=== PATIENT | female | born 1970 | race Caucasian/White ===

== ENCOUNTER 2017-04-24 22:40 | Emergency (ER) | payer BC, MEDICARE ==
[~2017-04-24] VITALS: Ht 172.7 cm; Wt 123.3 kg
[2017-04-24] MEDS ORDERED: MAALOX/HYOSCYAMINE/LIDOCAINE 45 ML BTL PO ONE (23:30)
[2017-04-24 23:38] LABS: HEMOGLOBIN 13.6 g/dL (11.7-16.4)
[2017-04-24 23:50] LABS: ASPARTATE AMINO TRANSFERASE 22 U/L (15-37); BLOOD UREA NITROGEN 19 mg/dL (7-18)
[2017-04-25 00:05] LABS: HCG UR OBC PASS
[2017-04-25 00:06] LABS: PATH.CAST-FLAG NOT PRESENT; SPERM-FLAG NOT PRESENT; SRC-FLAG NOT PRESENT; XTAL-FLAG NOT PRESENT; YLC-FLAG NOT PRESENT
[2017-04-25] MEDS ORDERED: MORPHINE SULFATE 4 MG/ML, 1ML ONE ×2 (00:30→02:09)
[2017-04-25] MEDS ORDERED: SODIUM CHLORIDE 0.9% 1,000ML IVBOLUS ONE (00:30)
[2017-04-25] MEDS ORDERED: ONDANSETRON 2MG/ML, 2ML ONE (00:30)
[2017-04-25] MEDS ORDERED: ONDANSETRON 2MG/ML, 2ML IVPush ONE (00:30)
[2017-04-25] MEDS ORDERED: MAALOX/HYOSCYAMINE/LIDOCAINE 45 ML BTL ONE (00:30)
[2017-04-25] MEDS: MORPHINE SULFATE 4 MG/ML, 1ML IVPush PRN ×2 (00:31→02:10)
[2017-04-25] MEDS ORDERED: LABE100T3 PO (00:37)
[2017-04-25] MEDS ORDERED: LEVO300T2 PO (00:37)
[2017-04-25] MEDS ORDERED: INSU100V8 SQ (00:37)
[2017-04-25] MEDS ORDERED: PREG200C PO (00:37)
[2017-04-25] MEDS ORDERED: OMNIPAQUE 350 MG/ML, 100ML BOTTLE ONE (01:00)
[2017-04-25 01:44] VITALS: BP 149/95
[2017-04-25 02:23] LABS: IS PT STATUS REG ER OR PRE ER? YES
== END 2017-04-25 02:47 | disposition home or self-care (01) ==
LOC: ED 23:29
DX: K85.90 Acute pancreatitis without necrosis or infection, unspecified (principal); R10.13 Epigastric pain; R10.12 Left upper quadrant pain; E11.9 Type 2 diabetes mellitus without complications; I10 Essential (primary) hypertension
CPT/HCPCS: 36415; 74177; 80053; 81001; 81025; 83690; 84484; 85025; 87077; 87086; 87186; 93005; 96361; 96374; 96375; 96376; 99285; J2405; J7030; Q9967

== ENCOUNTER 2017-04-27 15:12 | Emergency (ER) | payer BC, MEDICARE ==
[~2017-04-27] VITALS: Ht 172.7 cm; Wt 122.4 kg
[~2017-04-27 15:12] MED LIST: INSU100V8 SQ; LABE100T3 PO; LEVO300T2 PO; PREG200C PO
[2017-04-27] MEDS ORDERED: SODIUM CHLORIDE 0.9% 1,000 ML IV ONE (15:46)
[2017-04-27] MEDS ORDERED: SODIUM CHLORIDE FLUSH 10ML SYR IVF ONE (16:00)
[2017-04-27] MEDS ORDERED: SODIUM CHLORIDE 0.9% 1,000ML IVBOLUS ONE (16:00)
[2017-04-27] MEDS ORDERED: ONDANSETRON 2MG/ML, 2ML IVPush ONE (16:00)
[2017-04-27] MEDS ORDERED: HYDROmorphone 1 MG/ML, 1ML IVPush PRN (16:00)
[2017-04-27 16:04] LABS: HEMATOCRIT 40.8 % (34.6-47.8); WHITE BLOOD COUNT 8.3 x10^3/uL (3.4-10)
[2017-04-27] MEDS ORDERED: ONDANSETRON 2MG/ML, 2ML ONE (16:06)
[2017-04-27] MEDS ORDERED: HYDROmorphone 1 MG/ML, 1ML ONE (16:06)
[2017-04-27 16:10] LABS: ASPARTATE AMINO TRANSFERASE 47 U/L (15-37); BLOOD UREA NITROGEN 14 mg/dL (7-18)
[2017-04-27 18:49] VITALS: BP 148/75
== END 2017-04-27 18:51 | disposition home or self-care (01) ==
LOC: ED 15:50
DX: K85.00 Idiopathic acute pancreatitis without necrosis or infection (principal); Z90.49 Acquired absence of other specified parts of digestive tract; I10 Essential (primary) hypertension; E11.9 Type 2 diabetes mellitus without complications
CPT/HCPCS: 36415; 80053; 81003; 83690; 85025; 96361; 96374; 96375; 99284; J1170; J2405; J7030

== ENCOUNTER → 2017-06-01 | Outpatient (CLI) | payer BC, MEDICARE | END | disposition home or self-care (01) | LOC: WOUND 14:09 | PROVIDERS: ATTEND Internal Medicine | DX: E11.621 Type 2 diabetes mellitus with foot ulcer (principal); L97.511 Non-pressure chronic ulcer of other part of right foot limited to breakdown of skin; E11.65 Type 2 diabetes mellitus with hyperglycemia; I10 Essential (primary) hypertension | CPT/HCPCS: 97597; 99205; 99215 ==

== ENCOUNTER → 2017-06-09 | Outpatient (CLI) | payer BC, MEDICARE | END | disposition home or self-care (01) | LOC: WOUND 10:16 | PROVIDERS: ATTEND Internal Medicine | DX: E11.621 Type 2 diabetes mellitus with foot ulcer (principal); L97.511 Non-pressure chronic ulcer of other part of right foot limited to breakdown of skin; E78.5 Hyperlipidemia, unspecified; E03.9 Hypothyroidism, unspecified; I10 Essential (primary) hypertension; Z87.891 Personal history of nicotine dependence | CPT/HCPCS: 97597 ==

== ENCOUNTER 2017-07-04 02:36 | Inpatient (IN) | payer MEDICARE, BC ==
[~2017-07-04] VITALS: Ht 172.7 cm; Wt 121.9 kg
[2017-07-04] MEDS ORDERED: SODIUM CHLORIDE 0.9% 1,000ML IVBOLUS ONE (03:00)
[2017-07-04] MEDS ORDERED: SODIUM CHLORIDE FLUSH 10ML SYR IVF ONE (03:00)
[2017-07-04] MEDS ORDERED: PIPERACILLIN/TAZO/PMX 3.375GM 50 ML IVPB ONE (03:00)
[2017-07-04] MEDS ORDERED: VANCOMYCIN 2,300 MG in SODIUM CHLORIDE 0.9% 500 ML IV ONE (03:00)
[2017-07-04] MEDS ORDERED: VANCOMYCIN PER PHARMACY IV ONE (03:00)
[2017-07-04] MEDS ORDERED: ONDANSETRON 2MG/ML, 2ML IVPush ONE ×2 (03:00→06:30)
[2017-07-04 03:05] LABS: HEMATOCRIT 39.9 % (34.6-47.8); HEMOGLOBIN 13.9 g/dL (11.7-16.4); WHITE BLOOD COUNT 9.8 x10^3/uL (3.4-10)
[2017-07-04 03:11] LABS: BLOOD UREA NITROGEN 13 mg/dL (7-18)
[2017-07-04] MEDS ORDERED: PIPERACILLIN/TAZO/PMX 3.375GM 50 ML ONE (03:14)
[2017-07-04] MEDS ORDERED: HYDROmorphone 1 MG/ML, 1ML ONE ×3 (03:14→06:22)
[2017-07-04] MEDS ORDERED: ONDANSETRON 2MG/ML, 2ML ONE ×2 (03:14→06:22)
[2017-07-04] MEDS ORDERED: LORazepam 2 MG/ML, 1ML ONE (03:15)
[2017-07-04] MEDS ORDERED: DIAZEPAM 5 MG TABLET PO ONE (03:30)
[2017-07-04] MEDS: HYDROmorphone 1 MG/ML, 1ML IVPush PRN ×2 (03:30→04:20)
[2017-07-04] MEDS ORDERED: LORazepam 2 MG/ML, 1ML IVPush ONE (03:30)
[2017-07-04] MEDS ORDERED: DIAZEPAM 5 MG TABLET ONE (03:51)
[2017-07-04] MEDS ORDERED: ZIPRASIDONE 20 MG INJ IM ONE (04:13)
[2017-07-04] MEDS ORDERED: GADOBUTROL 10 MMOL/10 ML PFS ONE (05:36)
[2017-07-04] MEDS ORDERED: HYDROmorphone 1 MG/ML, 1ML IVPush PRN (06:30)
[2017-07-04] MEDS ORDERED: MULT-508 PO (07:53)
[2017-07-04] MEDS ORDERED: HYDR-3307 PO (07:53)
[2017-07-04] MEDS ORDERED: SIMV20TA3 PO (07:53)
[2017-07-04] MEDS ORDERED: SODIUM CHLORIDE FLUSH 10ML SYR IVF PRN (08:00)
[2017-07-04] MEDS ORDERED: LABETALOL 5MG/ML, 20ML IVPush PRN (08:30)
[2017-07-04] MEDS ORDERED: VANCOMYCIN 0 MG in SODIUM CHLORIDE 0.9% 100 ML IV SCH (08:30)
[2017-07-04] MEDS ORDERED: hydrALAzine 20 MG/ML, 1ML IVPush PRN (08:30)
[2017-07-04] MEDS ORDERED: ONDANSETRON ODT 4 MG PO PRN (08:30)
[2017-07-04] MEDS ORDERED: BISACODYL 10 MG SUPP PR PRN (08:30)
[2017-07-04] MEDS ORDERED: ACETAMINOPHEN 325 MG TABLET PO PRN (08:30)
[2017-07-04] MEDS ORDERED: POLYETHYLENE GLYCOL 17 GM PACKET PO PRN (08:30)
[2017-07-04] MEDS ORDERED: ONDANSETRON 2MG/ML, 2ML IVPush PRN (08:30)
[2017-07-04] MEDS ORDERED: ZOLPIDEM 5MG TABLET PO PRN (08:30)
[2017-07-04 08:32] VITALS: BP 149/84
[2017-07-04] MEDS: VANCOMYCIN MC SCH ×2 (09:00→17:00)
[2017-07-04] MEDS: SENNA/DOCUSATE TABLET PO SCH (09:00)
[2017-07-04] MEDS ORDERED: SUMATRIPTAN 6MG/0.5ML SQ ONE (10:00)
[2017-07-04] MEDS: NS + 20MEQ KCL 1,000 ML IV SCH (10:06)
[2017-07-04] MEDS: HYDROcodone/APAP 10/325 MG TABLET PO SCH ×3 (10:06→20:00)
[2017-07-04] MEDS: PREGABALIN 200 MG CAPSULE PO SCH ×2 (10:13→19:59)
[2017-07-04] MEDS: PIPERACILLIN/TAZO/PMX 3.375GM 50 ML IV SCH ×3 (10:13→19:53)
[2017-07-04] MEDS: ENOXAPARIN 40 MG/0.4 ML SQ SCH (10:13)
[2017-07-04] MEDS: FAMOTIDINE 20 MG TABLET PO SCH ×2 (10:13→19:57)
[2017-07-04] MEDS: LABETALOL 100 MG TABLET PO SCH ×2 (10:13→19:54)
[2017-07-04] MEDS: MULTIVITAMIN 1 TABLET PO SCH (10:13)
[2017-07-04] MEDS ORDERED: VANCOMYCIN 2,400 MG in SODIUM CHLORIDE 0.9% 500 ML IV ONE (11:00)
[2017-07-04] MEDS ORDERED: VANCOMYCIN PER PHARMACY MC PRN (11:00)
[2017-07-04] MEDS: HYDROmorphone 2 MG/ML, 1ML IVPush PRN ×4 (12:10→19:12)
[2017-07-04] MEDS: INSULIN REGULAR 100 UNITS/ML, 3ML VIAL SQ-INSULIN SCH ×3 (13:06→20:17)
[2017-07-04 16:04] VITALS: BP 134/79
[2017-07-04] MEDS: SIMVASTATIN 20 MG TABLET PO SCH (19:54)
[2017-07-04 19:56] VITALS: BP 125/76
[2017-07-04] MEDS ORDERED: INSULIN GLARGINE HUM REC ANLOG 72 UNIT SQ SCH (21:00)
[2017-07-04] MEDS: VANCOMYCIN 1,800 MG in SODIUM CHLORIDE 0.9% 250 ML IV SCH (22:36)
[2017-07-04 23:20] VITALS: BP 111/74
[2017-07-04] MEDS: OXYcodone IR 5MG TABLET PO PRN (23:23)
[2017-07-05] MEDS: VANCOMYCIN MC SCH
[2017-07-05 00:53] VITALS: BP 134/78
[2017-07-05] MEDS: HYDROmorphone 2 MG/ML, 1ML IVPush PRN ×5 (00:57→22:35)
[2017-07-05] MEDS: PIPERACILLIN/TAZO/PMX 3.375GM 50 ML IV SCH ×3 (03:40→17:02)
[2017-07-05 05:01] LABS: HEMATOCRIT 35.4 % (34.6-47.8); HEMOGLOBIN 12.3 g/dL (11.7-16.4); WHITE BLOOD COUNT 7.1 x10^3/uL (3.4-10)
[2017-07-05] MEDS: NS + 20MEQ KCL 1,000 ML IV SCH (05:03)
[2017-07-05] MEDS: LEVOTHYROXINE 150 MCG TABLET PO SCH (05:03)
[2017-07-05 05:13] LABS: BLOOD UREA NITROGEN 8 mg/dL (7-18)
[2017-07-05 05:15] VITALS: BP 143/82
[2017-07-05 07:23] VITALS: BP 114/72
[2017-07-05] MEDS: SENNA/DOCUSATE TABLET PO SCH (09:00)
[2017-07-05] MEDS: MULTIVITAMIN 1 TABLET PO SCH (09:06)
[2017-07-05] MEDS: LABETALOL 100 MG TABLET PO SCH ×2 (09:07→20:52)
[2017-07-05] MEDS: OXYcodone IR 5MG TABLET PO PRN (09:07)
[2017-07-05] MEDS: FAMOTIDINE 20 MG TABLET PO SCH ×2 (09:07→20:53)
[2017-07-05] MEDS: PREGABALIN 200 MG CAPSULE PO SCH ×2 (09:07→20:52)
[2017-07-05] MEDS: HYDROcodone/APAP 10/325 MG TABLET PO SCH ×3 (09:07→20:52)
[2017-07-05] MEDS: ENOXAPARIN 40 MG/0.4 ML SQ SCH (09:08)
[2017-07-05] MEDS: INSULIN REGULAR 100 UNITS/ML, 3ML VIAL SQ-INSULIN SCH ×4 (09:30→21:09)
[2017-07-05] MEDS: VANCOMYCIN 1,800 MG in SODIUM CHLORIDE 0.9% 250 ML IV SCH (12:27)
[2017-07-05 12:50] VITALS: BP 124/78
[2017-07-05] MEDS ORDERED: LORazepam 2 MG/ML, 1ML IVPush ONE (14:30)
[2017-07-05] MEDS ORDERED: NS + 20MEQ KCL 1,000 ML IV SCH (17:00)
[2017-07-05] MEDS ORDERED: POLYETHYLENE GLYCOL 17 GM PACKET PO PRN (19:30)
[2017-07-05] MEDS ORDERED: ONDANSETRON ODT 4 MG PO PRN (19:30)
[2017-07-05] MEDS ORDERED: VANCOMYCIN PER PHARMACY MC PRN (19:30)
[2017-07-05] MEDS ORDERED: BISACODYL 10 MG SUPP PR PRN (19:30)
[2017-07-05] MEDS ORDERED: ACETAMINOPHEN 325 MG TABLET PO PRN (19:30)
[2017-07-05] MEDS ORDERED: LABETALOL 5MG/ML, 20ML IVPush PRN (19:30)
[2017-07-05 20:03] VITALS: BP 151/86
[2017-07-05] MEDS: SIMVASTATIN 20 MG TABLET PO SCH (20:52)
[2017-07-06] MEDS: PIPERACILLIN/TAZO/PMX 3.375GM 50 ML IV SCH ×2 (00:48→07:30)
[2017-07-06 01:05] VITALS: BP 141/84
[2017-07-06] MEDS: HYDROmorphone 2 MG/ML, 1ML IVPush PRN ×6 (01:30→22:50)
[2017-07-06] MEDS: VANCOMYCIN 1,800 MG in SODIUM CHLORIDE 0.9% 250 ML IV SCH (01:30)
[2017-07-06 05:12] LABS: HEMATOCRIT 35.2 % (34.6-47.8); HEMOGLOBIN 11.8 g/dL (11.7-16.4); WHITE BLOOD COUNT 9.4 x10^3/uL (3.4-10)
[2017-07-06 05:23] LABS: BLOOD UREA NITROGEN 12 mg/dL (7-18)
[2017-07-06] MEDS: LEVOTHYROXINE 150 MCG TABLET PO SCH (05:36)
[2017-07-06 07:01] VITALS: BP 162/84
[2017-07-06] MEDS: INSULIN REGULAR 100 UNITS/ML, 3ML VIAL SQ-INSULIN SCH ×4 (07:33→20:29)
[2017-07-06] MEDS: SENNA/DOCUSATE TABLET PO SCH (07:34)
[2017-07-06] MEDS: MULTIVITAMIN 1 TABLET PO SCH (07:34)
[2017-07-06] MEDS: FAMOTIDINE 20 MG TABLET PO SCH (07:34)
[2017-07-06] MEDS: PREGABALIN 200 MG CAPSULE PO SCH ×2 (07:35→20:18)
[2017-07-06] MEDS: LABETALOL 100 MG TABLET PO SCH ×2 (07:35→20:18)
[2017-07-06] MEDS: ENOXAPARIN 40 MG/0.4 ML SQ SCH (07:35)
[2017-07-06] MEDS ORDERED: AMPICILLIN/SULBACTAM 1,500 MG in SODIUM CHLORIDE 0.9% 50 ML IV SCH (09:00)
[2017-07-06] MEDS: SODIUM CHLORIDE 0.9% 1,000 ML IV SCH ×2 (10:38→21:14)
[2017-07-06] MEDS: HYDROcodone/APAP 10/325 MG TABLET PO SCH ×3 (11:14→21:13)
[2017-07-06 13:28] VITALS: BP 149/82
[2017-07-06] MEDS: AMPICILLIN/SULBACTAM 3 GM in SODIUM CHLORIDE 0.9% 100 ML IV SCH ×2 (14:18→21:14)
[2017-07-06] MEDS: SUMATRIPTAN 50 MG TABLET PO PRN ×2 (16:53→23:52)
[2017-07-06 19:29] VITALS: BP 144/83
[2017-07-06] MEDS: OXYcodone IR 5MG TABLET PO PRN (20:18)
[2017-07-06] MEDS: SIMVASTATIN 20 MG TABLET PO SCH (20:18)
[2017-07-06 22:27] LABS: POTASSIUM,URINE RANDOM 7 mmol/L
[2017-07-07 01:23] VITALS: BP 152/76
[2017-07-07] MEDS: HYDROmorphone 2 MG/ML, 1ML IVPush PRN ×6 (02:07→23:25)
[2017-07-07 04:28] LABS: HEMATOCRIT 33.7 % (34.6-47.8); HEMOGLOBIN 11.5 g/dL (11.7-16.4); WHITE BLOOD COUNT 8.8 x10^3/uL (3.4-10)
[2017-07-07 04:48] LABS: BLOOD UREA NITROGEN 16 mg/dL (7-18)
[2017-07-07] MEDS: LEVOTHYROXINE 150 MCG TABLET PO SCH (05:54)
[2017-07-07] MEDS: AMPICILLIN/SULBACTAM 3 GM in SODIUM CHLORIDE 0.9% 100 ML IV SCH ×3 (05:56→22:19)
[2017-07-07] MEDS: INSULIN REGULAR 100 UNITS/ML, 3ML VIAL SQ-INSULIN SCH ×4 (07:28→20:56)
[2017-07-07 07:54] VITALS: BP 147/86
[2017-07-07] MEDS: SODIUM CHLORIDE 0.9% 1,000 ML IV SCH ×3 (08:33→22:19)
[2017-07-07] MEDS: PREGABALIN 200 MG CAPSULE PO SCH ×2 (08:40→20:55)
[2017-07-07] MEDS: LABETALOL 100 MG TABLET PO SCH ×2 (08:41→20:55)
[2017-07-07] MEDS: FAMOTIDINE 20 MG TABLET PO SCH (08:41)
[2017-07-07] MEDS: SENNA/DOCUSATE TABLET PO SCH (08:41)
[2017-07-07] MEDS: MULTIVITAMIN 1 TABLET PO SCH (08:41)
[2017-07-07] MEDS: ENOXAPARIN 40 MG/0.4 ML SQ SCH (08:42)
[2017-07-07] MEDS: HYDROcodone/APAP 10/325 MG TABLET PO SCH ×4 (09:00→22:51)
[2017-07-07] MEDS ORDERED: SODIUM CHLORIDE 0.9% 1,000 ML IV SCH (11:30)
[2017-07-07] MEDS: MICAFUNGIN 100 MG in SODIUM CHLORIDE 0.9% 100 ML IV SCH (11:55)
[2017-07-07] MEDS: METHOCARBAMOL 500 MG TABLET PO PRN ×2 (13:23→18:04)
[2017-07-07] MEDS: DIPHENHYDRAMINE/ZINC CRM 2%, 30GM TP PRN (13:23)
[2017-07-07] MEDS: OXYcodone IR 5MG TABLET PO PRN (13:41)
[2017-07-07] MEDS: ENOXAPARIN 30 MG/0.3 ML SQ SCH (14:12)
[2017-07-07 14:58] VITALS: BP 129/76
[2017-07-07 16:03] LABS: RHEUMATOID FACTOR SCREEN NEGATIVE (NEGATIVE)
[2017-07-07 20:07] VITALS: BP 184/99
[2017-07-07] MEDS: SIMVASTATIN 20 MG TABLET PO SCH (20:55)
[2017-07-08 00:48] VITALS: BP 146/75
[2017-07-08] MEDS: HYDROmorphone 2 MG/ML, 1ML IVPush PRN ×5 (02:30→21:39)
[2017-07-08] MEDS: METHOCARBAMOL 500 MG TABLET PO PRN ×4 (03:53→23:52)
[2017-07-08 04:33] LABS: HEMATOCRIT 31.1 % (34.6-47.8); HEMOGLOBIN 10.7 g/dL (11.7-16.4); WHITE BLOOD COUNT 9.5 x10^3/uL (3.4-10)
[2017-07-08 04:45] LABS: BLOOD UREA NITROGEN 18 mg/dL (7-18)
[2017-07-08 04:47] LABS: ASPARTATE AMINO TRANSFERASE 14 U/L (15-37)
[2017-07-08] MEDS: LEVOTHYROXINE 150 MCG TABLET PO SCH (05:29)
[2017-07-08] MEDS: SODIUM CHLORIDE 0.9% 1,000 ML IV SCH ×3 (05:30→18:18)
[2017-07-08] MEDS: AMPICILLIN/SULBACTAM 3 GM in SODIUM CHLORIDE 0.9% 100 ML IV SCH (05:46)
[2017-07-08 06:26] LABS: HCG UR LOT HCG7030192
[2017-07-08 06:31] LABS: HCG UR OBC PASS
[2017-07-08] MEDS ORDERED: KETAMINE 10 MG/ML, 20ML ONE (06:42)
[2017-07-08] MEDS ORDERED: ONDANSETRON 2MG/ML, 2ML ONE (06:43)
[2017-07-08] MEDS ORDERED: SUCCINYLCHOLINE 20 MG/ML, 10ML ONE (06:43)
[2017-07-08] MEDS ORDERED: PROPOFOL 10 MG/ML, 20ML ONE ×2 (06:43→06:50)
[2017-07-08] MEDS ORDERED: FENTANYL PF 250 MCG/5ML ONE (06:43)
[2017-07-08] MEDS ORDERED: DEXAMETHASONE 4 MG/ML, 1ML ONE (06:43)
[2017-07-08] MEDS ORDERED: MIDAZOLAM 1 MG/ML, 2ML ONE (06:43)
[2017-07-08] MEDS ORDERED: LIDOCAINE GEL 2%, 5ML ONE (06:51)
[2017-07-08] MEDS: INSULIN REGULAR 100 UNITS/ML, 3ML VIAL SQ-INSULIN SCH ×4 (07:00→20:28)
[2017-07-08] MEDS ORDERED: LIDOCAINE-MPF 2% ,5ML ONE (07:17)
[2017-07-08] MEDS ORDERED: ALBUTEROL/IPRATROPIUM 2.5MG/0.5MG, 3 ML NPPB PRN (07:30)
[2017-07-08] MEDS ORDERED: PROMETHAZINE 25 MG/ML, 1ML IV PRN (07:30)
[2017-07-08] MEDS ORDERED: OXYcodone 5 MG/5 ML ORAL.SOL UDC PO PRN (07:30)
[2017-07-08] MEDS ORDERED: HYDROmorphone 1 MG/ML, 1ML IV PRN (07:30)
[2017-07-08] MEDS ORDERED: MIDAZOLAM 1 MG/ML, 2ML IV PRN (07:30)
[2017-07-08] MEDS ORDERED: LABETALOL 5MG/ML, 20ML IV PRN (07:30)
[2017-07-08] MEDS ORDERED: ONDANSETRON 2MG/ML, 2ML IVPush PRN (07:30)
[2017-07-08] MEDS ORDERED: EPHEDRINE 50 MG/ML, 1ML IVPush PRN (07:30)
[2017-07-08] MEDS ORDERED: BUPIVACAINE/PF 0.5% ONE (07:43)
[2017-07-08] MEDS ORDERED: OXYcodone 5 MG/5 ML ORAL.SOL UDC ONE (08:11)
[2017-07-08] MEDS ORDERED: ACETAMINOPHEN 650 MG/20.3 ML UDC ONE (08:11)
[2017-07-08] MEDS ORDERED: FENTANYL PF 100 MCG/2ML ONE (08:14)
[2017-07-08] MEDS: FENTANYL PF 100 MCG/2ML IV PRN ×2 (08:16→08:31)
[2017-07-08] MEDS: HYDROcodone/APAP 10/325 MG TABLET PO SCH ×3 (08:53→20:28)
[2017-07-08] MEDS: SENNA/DOCUSATE TABLET PO SCH (08:54)
[2017-07-08] MEDS: PREGABALIN 200 MG CAPSULE PO SCH ×2 (09:05→20:28)
[2017-07-08] MEDS: FAMOTIDINE 20 MG TABLET PO SCH (09:05)
[2017-07-08] MEDS: MULTIVITAMIN 1 TABLET PO SCH (09:05)
[2017-07-08] MEDS: LABETALOL 100 MG TABLET PO SCH ×2 (09:06→20:28)
[2017-07-08] MEDS: DIPHENHYDRAMINE/ZINC CRM 2%, 30GM TP PRN ×3 (11:23→20:30)
[2017-07-08] MEDS: MICAFUNGIN 100 MG in SODIUM CHLORIDE 0.9% 100 ML IV SCH (11:37)
[2017-07-08 12:53] VITALS: BP 150/74
[2017-07-08] MEDS ORDERED: DIPHENHYDRAMINE 25 MG CAPSULE PO PRN (14:00)
[2017-07-08] MEDS ORDERED: INSULIN DETEMIR 100 UNITS/ML, PEN SQ-INSULIN SCH (14:30)
[2017-07-08] MEDS ORDERED: CEFTAROLINE 400 MG in SODIUM CHLORIDE 0.9% 100 ML IV SCH (14:30)
[2017-07-08] MEDS: CEFTAROLINE 300 MG in SODIUM CHLORIDE 0.9% 100 ML IV SCH (16:03)
[2017-07-08] MEDS: ENOXAPARIN 30 MG/0.3 ML SQ SCH (17:15)
[2017-07-08 19:20] VITALS: BP 160/84
[2017-07-08] MEDS: SIMVASTATIN 20 MG TABLET PO SCH (20:28)
[2017-07-08] MEDS: INSULIN DETEMIR 100 UNITS/ML, PEN SQ-INSULIN SCH (20:30)
[2017-07-08] MEDS: KETOCONAZOLE CRM 2%, 15GM TP SCH (20:32)
[2017-07-09] MEDS: SODIUM CHLORIDE 0.9% 1,000 ML IV SCH ×4 (00:50→22:00)
[2017-07-09] MEDS: HYDROmorphone 2 MG/ML, 1ML IVPush PRN ×5 (00:50→22:36)
[2017-07-09 01:24] VITALS: BP 147/70
[2017-07-09] MEDS: CEFTAROLINE 300 MG in SODIUM CHLORIDE 0.9% 100 ML IV SCH (01:51)
[2017-07-09] MEDS: LEVOTHYROXINE 150 MCG TABLET PO SCH (05:19)
[2017-07-09 06:44] VITALS: BP 131/71
[2017-07-09] MEDS: INSULIN REGULAR 100 UNITS/ML, 3ML VIAL SQ-INSULIN SCH ×4 (07:00→21:00)
[2017-07-09] MEDS: SENNA/DOCUSATE TABLET PO SCH (09:00)
[2017-07-09] MEDS: METHOCARBAMOL 500 MG TABLET PO PRN ×2 (09:21→15:35)
[2017-07-09] MEDS: HYDROcodone/APAP 10/325 MG TABLET PO SCH ×3 (09:21→20:30)
[2017-07-09] MEDS: INSULIN DETEMIR 100 UNITS/ML, PEN SQ-INSULIN SCH ×2 (09:22→22:56)
[2017-07-09] MEDS: PREGABALIN 200 MG CAPSULE PO SCH ×2 (10:20→22:55)
[2017-07-09] MEDS: LABETALOL 100 MG TABLET PO SCH ×2 (10:21→22:56)
[2017-07-09] MEDS: FAMOTIDINE 20 MG TABLET PO SCH (10:22)
[2017-07-09] MEDS: MULTIVITAMIN 1 TABLET PO SCH (10:23)
[2017-07-09] MEDS: DIPHENHYDRAMINE/ZINC CRM 2%, 30GM TP PRN (10:26)
[2017-07-09 11:27] LABS: BLOOD UREA NITROGEN 23 mg/dL (7-18)
[2017-07-09] MEDS: CEFAZOLIN PMX 2GM/50ML 50 ML IV SCH (12:32)
[2017-07-09 13:25] VITALS: BP 146/75
[2017-07-09] MEDS: MICAFUNGIN 100 MG in SODIUM CHLORIDE 0.9% 100 ML IV SCH (13:56)
[2017-07-09] MEDS: KETOCONAZOLE CRM 2%, 15GM TP SCH ×2 (13:58→21:00)
[2017-07-09] MEDS: ENOXAPARIN 30 MG/0.3 ML SQ SCH (15:34)
[2017-07-09 19:40] VITALS: BP 188/101
[2017-07-09] MEDS: SIMVASTATIN 20 MG TABLET PO SCH (22:55)
[2017-07-09] MEDS: AMLODIPINE 5 MG TABLET PO SCH (22:56)
[2017-07-10 02:18] VITALS: BP 179/85
[2017-07-10] MEDS: HYDROmorphone 2 MG/ML, 1ML IVPush PRN ×5 (02:34→20:19)
[2017-07-10] MEDS: hydrALAzine 20 MG/ML, 1ML IVPush PRN (02:34)
[2017-07-10] MEDS: SODIUM CHLORIDE 0.9% 1,000 ML IV SCH ×2 (02:45→09:22)
[2017-07-10 04:49] LABS: HEMATOCRIT 31.5 % (34.6-47.8); HEMOGLOBIN 10.8 g/dL (11.7-16.4); WHITE BLOOD COUNT 10.5 x10^3/uL (3.4-10)
[2017-07-10 04:50] LABS: BLOOD UREA NITROGEN 26 mg/dL (7-18)
[2017-07-10] MEDS: LEVOTHYROXINE 150 MCG TABLET PO SCH (05:17)
[2017-07-10 07:00] VITALS: BP 171/80
[2017-07-10] MEDS: INSULIN REGULAR 100 UNITS/ML, 3ML VIAL SQ-INSULIN SCH ×4 (07:40→21:00)
[2017-07-10] MEDS: SENNA/DOCUSATE TABLET PO SCH (09:00)
[2017-07-10] MEDS: AMLODIPINE 5 MG TABLET PO SCH ×2 (09:22→20:29)
[2017-07-10] MEDS: PREGABALIN 200 MG CAPSULE PO SCH ×2 (09:22→20:29)
[2017-07-10] MEDS: CEFAZOLIN PMX 2GM/50ML 50 ML IV SCH (09:22)
[2017-07-10] MEDS: HYDROcodone/APAP 10/325 MG TABLET PO SCH ×3 (09:22→21:00)
[2017-07-10] MEDS: FAMOTIDINE 20 MG TABLET PO SCH (09:23)
[2017-07-10] MEDS: MULTIVITAMIN 1 TABLET PO SCH (09:23)
[2017-07-10] MEDS: LABETALOL 100 MG TABLET PO SCH ×2 (09:24→20:29)
[2017-07-10] MEDS: INSULIN DETEMIR 100 UNITS/ML, PEN SQ-INSULIN SCH ×2 (09:28→21:00)
[2017-07-10] MEDS: DIPHENHYDRAMINE/ZINC CRM 2%, 30GM TP PRN (09:28)
[2017-07-10] MEDS: METHOCARBAMOL 500 MG TABLET PO PRN ×2 (09:29→18:07)
[2017-07-10] MEDS: KETOCONAZOLE CRM 2%, 15GM TP SCH ×2 (09:29→21:35)
[2017-07-10] MEDS: MICAFUNGIN 100 MG in SODIUM CHLORIDE 0.9% 100 ML IV SCH (11:44)
[2017-07-10 12:22] VITALS: BP 167/82
[2017-07-10] MEDS: ENOXAPARIN 40 MG/0.4 ML SQ SCH (16:51)
[2017-07-10 18:50] VITALS: BP 190/95
[2017-07-10] MEDS: SIMVASTATIN 20 MG TABLET PO SCH (20:29)
[2017-07-11] VITALS (7 sets, daily range): BP systolic 147–188; BP diastolic 77–95
[2017-07-11] MEDS: HYDROmorphone 2 MG/ML, 1ML IVPush PRN ×6 (01:01→20:58)
[2017-07-11] MEDS: hydrALAzine 20 MG/ML, 1ML IVPush PRN ×3 (01:53→16:39)
[2017-07-11] MEDS: LEVOTHYROXINE 150 MCG TABLET PO SCH (05:34)
[2017-07-11] MEDS: CEFAZOLIN PMX 2GM/50ML 50 ML IV SCH (07:42)
[2017-07-11] MEDS: AMLODIPINE 5 MG TABLET PO SCH ×2 (07:42→19:55)
[2017-07-11] MEDS: INSULIN REGULAR 100 UNITS/ML, 3ML VIAL SQ-INSULIN SCH ×4 (07:58→21:11)
[2017-07-11] MEDS: ONDANSETRON 2MG/ML, 2ML IVPush PRN (08:30)
[2017-07-11] MEDS: SENNA/DOCUSATE TABLET PO SCH (09:00)
[2017-07-11] MEDS: HYDROcodone/APAP 10/325 MG TABLET PO SCH ×3 (09:09→19:55)
[2017-07-11] MEDS: INSULIN DETEMIR 100 UNITS/ML, PEN SQ-INSULIN SCH ×2 (09:10→21:10)
[2017-07-11] MEDS: MULTIVITAMIN 1 TABLET PO SCH (09:11)
[2017-07-11] MEDS: FAMOTIDINE 20 MG TABLET PO SCH (09:11)
[2017-07-11] MEDS: LABETALOL 100 MG TABLET PO SCH ×2 (09:11→19:55)
[2017-07-11] MEDS: PREGABALIN 200 MG CAPSULE PO SCH ×2 (09:12→19:55)
[2017-07-11] MEDS: KETOCONAZOLE CRM 2%, 15GM TP SCH ×2 (09:13→20:02)
[2017-07-11 13:08] LABS: BLOOD UREA NITROGEN 23 mg/dL (7-18)
[2017-07-11] MEDS: ENOXAPARIN 40 MG/0.4 ML SQ SCH (16:24)
[2017-07-11] MEDS: SIMVASTATIN 20 MG TABLET PO SCH (19:54)
[2017-07-12 00:52] VITALS: BP 164/90
[2017-07-12] MEDS: HYDROmorphone 2 MG/ML, 1ML IVPush PRN ×7 (01:00→23:00)
[2017-07-12 03:25] VITALS: BP 188/92
[2017-07-12 04:35] LABS: HEMATOCRIT 35.1 % (34.6-47.8); HEMOGLOBIN 11.9 g/dL (11.7-16.4); WHITE BLOOD COUNT 12.5 x10^3/uL (3.4-10)
[2017-07-12 04:48] LABS: BLOOD UREA NITROGEN 26 mg/dL (7-18)
[2017-07-12] MEDS: LEVOTHYROXINE 150 MCG TABLET PO SCH (06:31)
[2017-07-12 07:16] VITALS: BP 185/83
[2017-07-12] MEDS: AMLODIPINE 5 MG TABLET PO SCH ×2 (07:36→20:38)
[2017-07-12] MEDS: INSULIN DETEMIR 100 UNITS/ML, PEN SQ-INSULIN SCH ×2 (07:43→20:51)
[2017-07-12] MEDS: INSULIN REGULAR 100 UNITS/ML, 3ML VIAL SQ-INSULIN SCH ×4 (07:46→20:51)
[2017-07-12] MEDS: CEFAZOLIN PMX 2GM/50ML 50 ML IV SCH ×3 (08:00→20:43)
[2017-07-12] MEDS: HYDROcodone/APAP 10/325 MG TABLET PO SCH ×3 (08:32→20:39)
[2017-07-12] MEDS: FAMOTIDINE 20 MG TABLET PO SCH (08:32)
[2017-07-12] MEDS: LABETALOL 100 MG TABLET PO SCH ×2 (08:32→20:39)
[2017-07-12] MEDS: SENNA/DOCUSATE TABLET PO SCH (08:32)
[2017-07-12] MEDS: PREGABALIN 200 MG CAPSULE PO SCH ×2 (08:32→20:39)
[2017-07-12] MEDS: MULTIVITAMIN 1 TABLET PO SCH (08:32)
[2017-07-12] MEDS: KETOCONAZOLE CRM 2%, 15GM TP SCH ×2 (08:33→20:39)
[2017-07-12] MEDS: ONDANSETRON 2MG/ML, 2ML IVPush PRN (09:09)
[2017-07-12 13:56] VITALS: BP 146/78
[2017-07-12] MEDS: ENOXAPARIN 40 MG/0.4 ML SQ SCH (17:02)
[2017-07-12 18:30] VITALS: BP 131/77
[2017-07-12] MEDS: SIMVASTATIN 20 MG TABLET PO SCH (20:38)
[2017-07-13 03:15] VITALS: BP 125/74
[2017-07-13] MEDS: HYDROmorphone 2 MG/ML, 1ML IVPush PRN ×4 (03:32→22:05)
[2017-07-13 04:47] LABS: HEMATOCRIT 35.8 % (34.6-47.8); HEMOGLOBIN 12.2 g/dL (11.7-16.4); WHITE BLOOD COUNT 13.9 x10^3/uL (3.4-10)
[2017-07-13 04:55] LABS: BLOOD UREA NITROGEN 29 mg/dL (7-18)
[2017-07-13] MEDS: LEVOTHYROXINE 150 MCG TABLET PO SCH (06:11)
[2017-07-13 07:31] VITALS: BP 127/75
[2017-07-13] MEDS: CEFAZOLIN PMX 2GM/50ML 50 ML IV SCH ×2 (08:03→20:48)
[2017-07-13] MEDS: INSULIN REGULAR 100 UNITS/ML, 3ML VIAL SQ-INSULIN SCH ×4 (08:04→19:47)
[2017-07-13] MEDS: FAMOTIDINE 20 MG TABLET PO SCH (08:04)
[2017-07-13] MEDS: LABETALOL 100 MG TABLET PO SCH ×2 (08:04→19:37)
[2017-07-13] MEDS: AMLODIPINE 5 MG TABLET PO SCH ×2 (08:05→19:36)
[2017-07-13] MEDS: PREGABALIN 200 MG CAPSULE PO SCH ×2 (08:05→19:36)
[2017-07-13] MEDS: MULTIVITAMIN 1 TABLET PO SCH (08:05)
[2017-07-13] MEDS: SENNA/DOCUSATE TABLET PO SCH (08:06)
[2017-07-13] MEDS: HYDROcodone/APAP 10/325 MG TABLET PO SCH ×3 (08:06→19:37)
[2017-07-13] MEDS: KETOCONAZOLE CRM 2%, 15GM TP SCH ×2 (08:07→19:37)
[2017-07-13] MEDS: INSULIN DETEMIR 100 UNITS/ML, PEN SQ-INSULIN SCH ×2 (08:08→19:47)
[2017-07-13 12:19] LABS: PATH.CAST-FLAG NOT PRESENT; SPERM-FLAG NOT PRESENT; SRC-FLAG NOT PRESENT; XTAL-FLAG NOT PRESENT; YLC-FLAG NOT PRESENT
[2017-07-13 13:07] VITALS: BP 127/76
[2017-07-13] MEDS: ENOXAPARIN 40 MG/0.4 ML SQ SCH (17:07)
[2017-07-13 19:16] VITALS: BP 152/80
[2017-07-13] MEDS: SIMVASTATIN 20 MG TABLET PO SCH (19:37)
[2017-07-14] MEDS: SUMATRIPTAN 100 MG TABLET PO PRN (01:18)
[2017-07-14 01:22] VITALS: BP 130/73
[2017-07-14 04:40] LABS: HEMATOCRIT 36.1 % (34.6-47.8); HEMOGLOBIN 12.4 g/dL (11.7-16.4); WHITE BLOOD COUNT 13.4 x10^3/uL (3.4-10)
[2017-07-14 04:59] LABS: BLOOD UREA NITROGEN 36 mg/dL (7-18)
[2017-07-14] MEDS: LEVOTHYROXINE 150 MCG TABLET PO SCH (06:33)
[2017-07-14 07:13] VITALS: BP 148/91
[2017-07-14] MEDS: HYDROmorphone 2 MG/ML, 1ML IVPush PRN ×2 (07:42→15:25)
[2017-07-14] MEDS: INSULIN REGULAR 100 UNITS/ML, 3ML VIAL SQ-INSULIN SCH ×4 (07:45→21:00)
[2017-07-14] MEDS: PREGABALIN 200 MG CAPSULE PO SCH ×2 (07:47→21:54)
[2017-07-14] MEDS: FAMOTIDINE 20 MG TABLET PO SCH (07:48)
[2017-07-14] MEDS: AMLODIPINE 5 MG TABLET PO SCH ×2 (07:48→21:48)
[2017-07-14] MEDS: MULTIVITAMIN 1 TABLET PO SCH (07:48)
[2017-07-14] MEDS: LABETALOL 100 MG TABLET PO SCH ×2 (07:48→21:49)
[2017-07-14] MEDS: SENNA/DOCUSATE TABLET PO SCH (07:50)
[2017-07-14] MEDS: HYDROcodone/APAP 10/325 MG TABLET PO SCH ×3 (07:50→21:50)
[2017-07-14] MEDS: KETOCONAZOLE CRM 2%, 15GM TP SCH ×2 (07:51→21:55)
[2017-07-14] MEDS: INSULIN DETEMIR 100 UNITS/ML, PEN SQ-INSULIN SCH ×2 (09:01→21:55)
[2017-07-14] MEDS: CEFAZOLIN PMX 2GM/50ML 50 ML IV SCH ×2 (09:01→21:50)
[2017-07-14 13:14] VITALS: BP 118/72
[2017-07-14] MEDS: ENOXAPARIN 40 MG/0.4 ML SQ SCH (16:52)
[2017-07-14 19:16] VITALS: BP 132/79
[2017-07-14] MEDS: SIMVASTATIN 20 MG TABLET PO SCH (21:49)
[2017-07-15 01:22] VITALS: BP 117/74
[2017-07-15] MEDS: LEVOTHYROXINE 150 MCG TABLET PO SCH (05:17)
[2017-07-15] MEDS: PREGABALIN 200 MG CAPSULE PO SCH ×2 (08:01→20:48)
[2017-07-15] MEDS: INSULIN REGULAR 100 UNITS/ML, 3ML VIAL SQ-INSULIN SCH ×4 (08:01→20:34)
[2017-07-15] MEDS: HYDROcodone/APAP 10/325 MG TABLET PO SCH ×3 (08:01→21:00)
[2017-07-15] MEDS: LABETALOL 100 MG TABLET PO SCH ×2 (08:01→20:48)
[2017-07-15] MEDS: MULTIVITAMIN 1 TABLET PO SCH (08:02)
[2017-07-15] MEDS: FAMOTIDINE 20 MG TABLET PO SCH (08:02)
[2017-07-15] MEDS: AMLODIPINE 5 MG TABLET PO SCH ×2 (08:02→20:48)
[2017-07-15] MEDS: SENNA/DOCUSATE TABLET PO SCH (08:03)
[2017-07-15] MEDS: KETOCONAZOLE CRM 2%, 15GM TP SCH ×2 (08:07→20:49)
[2017-07-15] MEDS: INSULIN DETEMIR 100 UNITS/ML, PEN SQ-INSULIN SCH ×2 (08:07→20:47)
[2017-07-15 09:18] VITALS: BP 138/85
[2017-07-15 09:24] LABS: BLOOD UREA NITROGEN 40 mg/dL (7-18)
[2017-07-15] MEDS: CEFAZOLIN PMX 2GM/50ML 50 ML IV SCH ×2 (10:41→20:47)
[2017-07-15 12:54] VITALS: BP 107/63
[2017-07-15] MEDS: ENOXAPARIN 40 MG/0.4 ML SQ SCH (16:01)
[2017-07-15 19:09] VITALS: BP 123/77
[2017-07-15] MEDS: SIMVASTATIN 20 MG TABLET PO SCH (20:49)
[2017-07-15] MEDS: OXYcodone IR 5MG TABLET PO PRN (20:51)
[2017-07-16] MEDS: SUMATRIPTAN 100 MG TABLET PO PRN (00:21)
[2017-07-16] MEDS: OXYcodone IR 5MG TABLET PO PRN ×6 (01:09→22:50)
[2017-07-16 04:40] VITALS: BP 127/83
[2017-07-16] MEDS: LEVOTHYROXINE 150 MCG TABLET PO SCH (04:48)
[2017-07-16 05:17] LABS: HEMATOCRIT 36.2 % (34.6-47.8); HEMOGLOBIN 12.2 g/dL (11.7-16.4); WHITE BLOOD COUNT 12.7 x10^3/uL (3.4-10)
[2017-07-16 05:21] LABS: BLOOD UREA NITROGEN 45 mg/dL (7-18)
[2017-07-16 07:40] VITALS: BP 122/83
[2017-07-16] MEDS: INSULIN REGULAR 100 UNITS/ML, 3ML VIAL SQ-INSULIN SCH ×4 (08:04→20:45)
[2017-07-16] MEDS: AMLODIPINE 5 MG TABLET PO SCH ×2 (08:17→20:38)
[2017-07-16] MEDS: MULTIVITAMIN 1 TABLET PO SCH (08:22)
[2017-07-16] MEDS: SENNA/DOCUSATE TABLET PO SCH (08:22)
[2017-07-16] MEDS: LABETALOL 100 MG TABLET PO SCH ×2 (08:22→20:38)
[2017-07-16] MEDS: FAMOTIDINE 20 MG TABLET PO SCH (08:22)
[2017-07-16] MEDS: HYDROcodone/APAP 10/325 MG TABLET PO SCH ×3 (08:22→20:37)
[2017-07-16] MEDS: PREGABALIN 200 MG CAPSULE PO SCH ×2 (08:22→20:37)
[2017-07-16] MEDS: INSULIN DETEMIR 100 UNITS/ML, PEN SQ-INSULIN SCH ×2 (08:23→20:44)
[2017-07-16] MEDS: KETOCONAZOLE CRM 2%, 15GM TP SCH ×2 (08:23→20:38)
[2017-07-16] MEDS: CEFAZOLIN PMX 2GM/50ML 50 ML IV SCH ×2 (09:49→20:37)
[2017-07-16 13:36] VITALS: BP 118/74
[2017-07-16] MEDS: ENOXAPARIN 40 MG/0.4 ML SQ SCH (17:05)
[2017-07-16 18:39] VITALS: BP 126/83
[2017-07-16] MEDS: SIMVASTATIN 20 MG TABLET PO SCH (20:38)
[2017-07-17 03:25] VITALS: BP 111/72
[2017-07-17] MEDS: OXYcodone IR 5MG TABLET PO PRN ×5 (03:30→23:19)
[2017-07-17] MEDS: LEVOTHYROXINE 150 MCG TABLET PO SCH (04:59)
[2017-07-17 05:23] LABS: BLOOD UREA NITROGEN 48 mg/dL (7-18)
[2017-07-17 06:37] VITALS: BP 121/76
[2017-07-17] MEDS: INSULIN REGULAR 100 UNITS/ML, 3ML VIAL SQ-INSULIN SCH ×4 (07:45→21:13)
[2017-07-17] MEDS: HYDROcodone/APAP 10/325 MG TABLET PO SCH ×3 (08:24→21:00)
[2017-07-17] MEDS: SENNA/DOCUSATE TABLET PO SCH ×2 (08:25→08:40)
[2017-07-17] MEDS: KETOCONAZOLE CRM 2%, 15GM TP SCH ×2 (08:25→21:00)
[2017-07-17] MEDS: AMLODIPINE 5 MG TABLET PO SCH ×2 (08:26→21:11)
[2017-07-17] MEDS: PREGABALIN 200 MG CAPSULE PO SCH ×2 (08:36→21:11)
[2017-07-17] MEDS: FAMOTIDINE 20 MG TABLET PO SCH ×2 (08:39→21:11)
[2017-07-17] MEDS: MULTIVITAMIN 1 TABLET PO SCH (08:40)
[2017-07-17] MEDS: LABETALOL 100 MG TABLET PO SCH ×2 (08:40→21:11)
[2017-07-17] MEDS: INSULIN DETEMIR 100 UNITS/ML, PEN SQ-INSULIN SCH ×2 (09:50→21:12)
[2017-07-17] MEDS: CEFAZOLIN PMX 2GM/50ML 50 ML IV SCH ×3 (09:50→23:20)
[2017-07-17 12:26] VITALS: BP 134/82
[2017-07-17] MEDS: ENOXAPARIN 40 MG/0.4 ML SQ SCH (16:14)
[2017-07-17 19:19] VITALS: BP 127/80
[2017-07-17] MEDS: SIMVASTATIN 20 MG TABLET PO SCH (21:11)
[2017-07-18 01:45] VITALS: BP 108/76
[2017-07-18 04:18] LABS: HEMOGLOBIN 12.4 g/dL (11.7-16.4); WHITE BLOOD COUNT 11.9 x10^3/uL (3.4-10)
[2017-07-18 04:28] LABS: BLOOD UREA NITROGEN 48 mg/dL (7-18)
[2017-07-18 04:31] LABS: ASPARTATE AMINO TRANSFERASE 17 U/L (15-37)
[2017-07-18] MEDS: OXYcodone IR 5MG TABLET PO PRN ×5 (05:12→23:42)
[2017-07-18] MEDS: LEVOTHYROXINE 150 MCG TABLET PO SCH (05:13)
[2017-07-18 06:58] VITALS: BP 126/78
[2017-07-18] MEDS: KETOCONAZOLE CRM 2%, 15GM TP SCH ×2 (08:30→21:23)
[2017-07-18] MEDS: SENNA/DOCUSATE TABLET PO SCH (08:30)
[2017-07-18] MEDS: AMLODIPINE 5 MG TABLET PO SCH ×2 (08:32→20:51)
[2017-07-18] MEDS: MULTIVITAMIN 1 TABLET PO SCH (08:32)
[2017-07-18] MEDS: FAMOTIDINE 20 MG TABLET PO SCH ×2 (08:32→20:51)
[2017-07-18] MEDS: CEFAZOLIN PMX 2GM/50ML 50 ML IV SCH ×2 (08:32→20:50)
[2017-07-18] MEDS: PREGABALIN 200 MG CAPSULE PO SCH ×2 (08:32→20:51)
[2017-07-18] MEDS: HYDROcodone/APAP 10/325 MG TABLET PO SCH ×3 (08:33→21:13)
[2017-07-18] MEDS: LABETALOL 100 MG TABLET PO SCH ×2 (08:33→20:51)
[2017-07-18] MEDS: INSULIN REGULAR 100 UNITS/ML, 3ML VIAL SQ-INSULIN SCH ×4 (08:43→21:22)
[2017-07-18] MEDS: INSULIN DETEMIR 100 UNITS/ML, PEN SQ-INSULIN SCH ×2 (08:44→21:19)
[2017-07-18 13:09] VITALS: BP 100/68
[2017-07-18] MEDS: ENOXAPARIN 40 MG/0.4 ML SQ SCH (16:30)
[2017-07-18 19:44] VITALS: BP 122/74
[2017-07-18] MEDS: SIMVASTATIN 20 MG TABLET PO SCH (20:51)
[2017-07-19 02:39] VITALS: BP 108/77
[2017-07-19 05:29] LABS: HEMATOCRIT 33.7 % (34.6-47.8); HEMOGLOBIN 11.6 g/dL (11.7-16.4); WHITE BLOOD COUNT 11.2 x10^3/uL (3.4-10)
[2017-07-19 05:37] LABS: BLOOD UREA NITROGEN 48 mg/dL (7-18)
[2017-07-19] MEDS: LEVOTHYROXINE 150 MCG TABLET PO SCH (05:53)
[2017-07-19] MEDS: OXYcodone IR 5MG TABLET PO PRN ×4 (08:07→22:52)
[2017-07-19] MEDS: FAMOTIDINE 20 MG TABLET PO SCH ×2 (08:08→20:53)
[2017-07-19] MEDS: MULTIVITAMIN 1 TABLET PO SCH (08:08)
[2017-07-19] MEDS: METHOCARBAMOL 500 MG TABLET PO PRN (08:09)
[2017-07-19] MEDS: AMLODIPINE 5 MG TABLET PO SCH ×2 (08:09→20:52)
[2017-07-19] MEDS: LABETALOL 100 MG TABLET PO SCH ×2 (08:09→20:53)
[2017-07-19] MEDS: PREGABALIN 200 MG CAPSULE PO SCH ×2 (08:10→20:52)
[2017-07-19] MEDS: INSULIN REGULAR 100 UNITS/ML, 3ML VIAL SQ-INSULIN SCH ×4 (08:13→21:00)
[2017-07-19] MEDS: INSULIN DETEMIR 100 UNITS/ML, PEN SQ-INSULIN SCH ×2 (08:14→21:11)
[2017-07-19] MEDS: SENNA/DOCUSATE TABLET PO SCH (08:15)
[2017-07-19 08:29] VITALS: BP 129/80
[2017-07-19] MEDS: KETOCONAZOLE CRM 2%, 15GM TP SCH ×2 (09:10→20:51)
[2017-07-19] MEDS: HYDROcodone/APAP 10/325 MG TABLET PO SCH ×3 (10:13→20:52)
[2017-07-19] MEDS: CEFAZOLIN PMX 2GM/50ML 50 ML IV SCH ×2 (10:13→20:51)
[2017-07-19 13:31] VITALS: BP 124/79
[2017-07-19] MEDS: ENOXAPARIN 40 MG/0.4 ML SQ SCH (16:26)
[2017-07-19 19:20] VITALS: BP 115/74
[2017-07-19] MEDS: SIMVASTATIN 20 MG TABLET PO SCH (20:53)
[2017-07-20 03:26] VITALS: BP 110/71
[2017-07-20] MEDS: OXYcodone IR 5MG TABLET PO PRN ×4 (05:42→19:43)
[2017-07-20] MEDS: LEVOTHYROXINE 150 MCG TABLET PO SCH (05:45)
[2017-07-20 06:20] LABS: HEMATOCRIT 34.1 % (34.6-47.8); HEMOGLOBIN 11.9 g/dL (11.7-16.4); WHITE BLOOD COUNT 10.1 x10^3/uL (3.4-10)
[2017-07-20 06:27] LABS: BLOOD UREA NITROGEN 40 mg/dL (7-18)
[2017-07-20 06:35] LABS: ASPARTATE AMINO TRANSFERASE 13 U/L (15-37)
[2017-07-20 07:06] VITALS: BP 115/78
[2017-07-20] MEDS: KETOCONAZOLE CRM 2%, 15GM TP SCH ×2 (09:00→21:00)
[2017-07-20] MEDS: SENNA/DOCUSATE TABLET PO SCH (09:00)
[2017-07-20] MEDS: AMLODIPINE 5 MG TABLET PO SCH ×2 (09:47→21:00)
[2017-07-20] MEDS: FAMOTIDINE 20 MG TABLET PO SCH ×2 (09:47→21:25)
[2017-07-20] MEDS: MULTIVITAMIN 1 TABLET PO SCH (09:47)
[2017-07-20] MEDS: CEFAZOLIN PMX 2GM/50ML 50 ML IV SCH (09:47)
[2017-07-20] MEDS: PREGABALIN 200 MG CAPSULE PO SCH ×2 (09:47→21:25)
[2017-07-20] MEDS: LABETALOL 100 MG TABLET PO SCH ×2 (09:48→21:00)
[2017-07-20] MEDS: HYDROcodone/APAP 10/325 MG TABLET PO SCH ×3 (09:49→21:25)
[2017-07-20] MEDS: INSULIN REGULAR 100 UNITS/ML, 3ML VIAL SQ-INSULIN SCH ×4 (09:49→21:37)
[2017-07-20] MEDS: INSULIN DETEMIR 100 UNITS/ML, PEN SQ-INSULIN SCH ×2 (09:49→21:37)
[2017-07-20 13:17] VITALS: BP 112/74
[2017-07-20] MEDS: CEFAZOLIN PMX 2GM/50ML 50 ML IVPB SCH ×2 (14:58→21:38)
[2017-07-20] MEDS: ENOXAPARIN 40 MG/0.4 ML SQ SCH (16:41)
[2017-07-20 19:40] VITALS: BP 100/64
[2017-07-20] MEDS: SIMVASTATIN 20 MG TABLET PO SCH (21:25)
[2017-07-21] MEDS: OXYcodone IR 5MG TABLET PO PRN ×5 (01:11→18:50)
[2017-07-21 01:40] VITALS: BP 116/70
[2017-07-21] MEDS: CEFAZOLIN PMX 2GM/50ML 50 ML IVPB SCH (05:27)
[2017-07-21] MEDS: LEVOTHYROXINE 150 MCG TABLET PO SCH (05:28)
[2017-07-21 08:15] VITALS: BP 133/89
[2017-07-21 08:22] LABS: BLOOD UREA NITROGEN 31 mg/dL (7-18)
[2017-07-21] MEDS ORDERED: CLON0.1T12 PO (08:53)
[2017-07-21] MEDS ORDERED: HYDR-3343 PO (08:53)
[2017-07-21] MEDS ORDERED: AMLO5TAB2 PO (08:53)
[2017-07-21] MEDS ORDERED: CEFA2PLA9 IV (08:53)
[2017-07-21] MEDS: INSULIN REGULAR 100 UNITS/ML, 3ML VIAL SQ-INSULIN SCH ×4 (08:55→20:42)
[2017-07-21] MEDS: MULTIVITAMIN 1 TABLET PO SCH (08:56)
[2017-07-21] MEDS: FAMOTIDINE 20 MG TABLET PO SCH ×2 (08:56→20:41)
[2017-07-21] MEDS: AMLODIPINE 5 MG TABLET PO SCH ×2 (08:56→20:39)
[2017-07-21] MEDS: LABETALOL 100 MG TABLET PO SCH ×2 (08:56→20:41)
[2017-07-21] MEDS: PREGABALIN 200 MG CAPSULE PO SCH ×2 (08:57→20:41)
[2017-07-21] MEDS: HYDROcodone/APAP 10/325 MG TABLET PO SCH ×3 (08:57→20:41)
[2017-07-21] MEDS: INSULIN DETEMIR 100 UNITS/ML, PEN SQ-INSULIN SCH ×2 (08:58→20:43)
[2017-07-21] MEDS: KETOCONAZOLE CRM 2%, 15GM TP SCH ×2 (08:59→20:44)
[2017-07-21] MEDS: SENNA/DOCUSATE TABLET PO SCH (10:38)
[2017-07-21] MEDS ORDERED: ERTAPENEM 1 GM in SODIUM CHLORIDE 0.9% 50 ML IV SCH (11:00)
[2017-07-21 13:10] VITALS: BP 107/71
[2017-07-21] MEDS ORDERED: ERTA1VIA IV (15:32)
[2017-07-21] MEDS: ENOXAPARIN 40 MG/0.4 ML SQ SCH (15:56)
[2017-07-21 20:37] VITALS: BP 111/74
[2017-07-21] MEDS: SIMVASTATIN 20 MG TABLET PO SCH (20:41)
== END 2017-07-21 22:00 | disposition home or self-care (01) | DRG 255 ==
LOC: ED 03:24 → EDIP 07:40 → 3NW 08:18
PROVIDERS: ADMIT Hospitalist; ATTEND Hospitalist
PROC: 0Y6R0Z1 Detachment at Right 2nd Toe, High, Open Approach (ICD-10-PCS; principal; 2017-07-04)
PROC: 0LNV0ZZ Release Right Foot Tendon, Open Approach (ICD-10-PCS; 2017-07-04)
PROC: 3E0R3GC Introduction of Other Therapeutic Substance into Spinal Canal, Percutaneous Approach (ICD-10-PCS; 2017-07-05)
PROC: 02HV33Z Insertion of Infusion Device into Superior Vena Cava, Percutaneous Approach (ICD-10-PCS; 2017-07-18)
PROC: B548ZZA Ultrasonography of Superior Vena Cava, Guidance (ICD-10-PCS; 2017-07-18)
DX: E11.52 Type 2 diabetes mellitus with diabetic peripheral angiopathy with gangrene (principal); N17.0 Acute kidney failure with tubular necrosis; M86.171 Other acute osteomyelitis, right ankle and foot; R78.81 Bacteremia; E66.01 Morbid (severe) obesity due to excess calories; M86.671 Other chronic osteomyelitis, right ankle and foot; E11.22 Type 2 diabetes mellitus with diabetic chronic kidney disease; I96 Gangrene, not elsewhere classified; Z68.41 Body mass index [BMI] 40.0-44.9, adult; N17.9 Acute kidney failure, unspecified; E11.69 Type 2 diabetes mellitus with other specified complication; E11.65 Type 2 diabetes mellitus with hyperglycemia; E83.52 Hypercalcemia; E11.621 Type 2 diabetes mellitus with foot ulcer; E11.42 Type 2 diabetes mellitus with diabetic polyneuropathy; D32.9 Benign neoplasm of meninges, unspecified; E03.9 Hypothyroidism, unspecified; E78.5 Hyperlipidemia, unspecified; I10 Essential (primary) hypertension; L03.031 Cellulitis of right toe; L27.0 Generalized skin eruption due to drugs and medicaments taken internally; L29.9 Pruritus, unspecified; L97.519 Non-pressure chronic ulcer of other part of right foot with unspecified severity; M20.41 Other hammer toe(s) (acquired), right foot; E07.9 Disorder of thyroid, unspecified; M62.838 Other muscle spasm; D72.829 Elevated white blood cell count, unspecified; F17.210 Nicotine dependence, cigarettes, uncomplicated; M47.9 Spondylosis, unspecified; M50.30 Other cervical disc degeneration, unspecified cervical region; M79.7 Fibromyalgia; Z79.4 Long term (current) use of insulin; Z82.49 Family history of ischemic heart disease and other diseases of the circulatory system; Z83.3 Family history of diabetes mellitus; Z90.49 Acquired absence of other specified parts of digestive tract; S92.414A Nondisplaced fracture of proximal phalanx of right great toe, initial encounter for closed fracture
CPT/HCPCS: 36415; 36569; 62273; 70450; 70490; 70543; 72156; 76770; 76937; 77001; 80048; 80053; 80061; 80202; 81001; 81025; 82040; 82306; 82436; 82962; 83036; 83605; 83690; 83735; 83970; 84100; 84133; 84145; 84300; 84439; 84443; 85025; 85651; 86038; 86140; 86430; 87015; 87040; 87070; 87075; 87077; 87086; 87102; 87116; 87186; 87205; 87206; 96365; 96366; 96368; 96375; 96376; A9585; J0295; J0690; J0712; J1100; J1170; J1335; J1650; J1815; J2248; J2250; J2405; J2543; J2704; J3010; J3370; J3480; J3490; C1751; J0330; J0360; J2060; J3030; J7030; J7040; J7050

== ENCOUNTER → 2017-09-01 | Outpatient (CLI) | payer BC, MEDICARE ==
[~2017-09-01] MED LIST changes: +AMLO5TAB2 PO; +CEFA2PLA9 IV; +CLON0.1T12 PO; +ERTA1VIA IV; +HYDR-3307 PO; +HYDR-3343 PO; +MULT-508 PO; +SIMV20TA3 PO
== END | disposition home or self-care (01) ==
LOC: WOUND 10:03
PROVIDERS: ATTEND Nurse Practitioner Family
DX: E11.621 Type 2 diabetes mellitus with foot ulcer (principal); L97.521 Non-pressure chronic ulcer of other part of left foot limited to breakdown of skin; E11.52 Type 2 diabetes mellitus with diabetic peripheral angiopathy with gangrene; E11.42 Type 2 diabetes mellitus with diabetic polyneuropathy; E11.65 Type 2 diabetes mellitus with hyperglycemia; E78.2 Mixed hyperlipidemia; E03.9 Hypothyroidism, unspecified; B35.1 Tinea unguium; E66.01 Morbid (severe) obesity due to excess calories; E11.69 Type 2 diabetes mellitus with other specified complication; M86.671 Other chronic osteomyelitis, right ankle and foot; I10 Essential (primary) hypertension; Z68.41 Body mass index [BMI] 40.0-44.9, adult; Z87.891 Personal history of nicotine dependence; Z89.412 Acquired absence of left great toe
CPT/HCPCS: 99215

== ENCOUNTER 2017-11-30 18:38 | Emergency (ER) | payer MEDICARE, BC ==
[~2017-11-30] VITALS: Ht 172.7 cm; Wt 116.4 kg
[2017-11-30 19:18] LABS: BASOPHILS # (AUTO) 0.04 x10^3/uL (0-0.1); BASOPHILS % (AUTO) 0 % (0-1); EOSINOPHILS # (AUTO) 0.25 x10^3/uL (0-0.4); EOSINOPHILS % (AUTO) 2 % (1-7); LYMPHOCYTES % (AUTO) 23 % (22-44); MD NO; MEAN CORPUSCULAR HGB CONC 34.1 g/dL (32.4-35.8); MEAN CORPUSCULAR VOLUME 87.9 fL (80-100); MEAN PLATELET VOLUME 8.5 fL (7.4-10.4); MONOCYTES # (AUTO) 0.67 x10^3/uL (0.2-0.8); MONOCYTES % (AUTO) 6 % (2-9); NEUTROPHILS # (AUTO) 7.96 x10^3/uL (1.8-6.8); NEUTROPHILS % (AUTO) 69 % (42-75); PLATELET COUNT 281 x10^3/uL (130-400); RED BLOOD COUNT 5.11 x10^6/uL (3.82-5.3); RED CELL DISTRIBUTION WIDTH 13.3 % (9.6-15.2)
[2017-11-30 19:31] LABS: ALANINE AMINOTRANSFERASE 103 U/L (12-78); ALBUMIN 3.6 g/dL (3.4-5.0); ANION GAP 8 mmol/L (5-15); CALCIUM 9.2 mg/dL (8.5-10.1); CHLORIDE 107 mmol/L (98-107); CREATININE 1.15 mg/dL (0.55-1.02)
[2017-11-30 19:36] LABS: ALKALINE PHOSPHATASE 82 U/L (45-117); BILIRUBIN,TOTAL 0.7 mg/dL (0.2-1.0)
[2017-11-30 19:41] LABS: THYROID STIMULATING HORMONE 0.021 mIU/L (0.358-3.740)
[2017-11-30 19:48] VITALS: BP 111/75
[2017-11-30] MEDS ORDERED: MAALOX/HYOSCYAMINE/LIDOCAINE 45 ML BTL ONE (19:51)
[2017-11-30] MEDS ORDERED: KETOROLAC 30 MG/1 ML ONE (19:51)
[2017-11-30] MEDS ORDERED: ONDANSETRON ODT 4 MG ONE (19:51)
[2017-11-30] MEDS ORDERED: MAALOX/HYOSCYAMINE/LIDOCAINE 45 ML BTL PO ONE (20:00)
[2017-11-30] MEDS ORDERED: ONDANSETRON ODT 4 MG PO ONE (20:00)
[2017-11-30] MEDS ORDERED: KETOROLAC 30 MG/1 ML IM ONE (20:00)
[2017-11-30 20:37] LABS: MICROSCOPIC NOT IND
[2017-11-30 20:47] LABS: CULTURE INDICATED? NO
[2017-11-30] MEDS ORDERED: PROMETHAZINE 25 MG/ML, 1ML ONE (21:50)
[2017-11-30] MEDS ORDERED: PROMETHAZINE 25 MG/ML, 1ML IM ONE (22:00)
== END 2017-11-30 23:06 | disposition home or self-care (01) ==
LOC: ED 22:50
DX: A09 Infectious gastroenteritis and colitis, unspecified (principal); E66.01 Morbid (severe) obesity due to excess calories; I10 Essential (primary) hypertension; E11.9 Type 2 diabetes mellitus without complications; M79.7 Fibromyalgia; Z68.39 Body mass index [BMI] 39.0-39.9, adult; Z88.0 Allergy status to penicillin; Z90.49 Acquired absence of other specified parts of digestive tract
CPT/HCPCS: 36415; 80053; 81003; 83690; 84443; 84703; 85025; 96372; 99284; J1885; J2550; Q0162

== ENCOUNTER → 2018-01-22 | Outpatient (CLI) | payer BC, MEDICARE ==
[~2018-01-22] MED LIST changes: +REGADENOSON 0.4 MG/5 ML SYRINGE ONE
== END | disposition home or self-care (01) ==
LOC: CFH 12:21
PROVIDERS: ATTEND Internal Medicine Cardiovascular Disease
DX: Z01.810 Encounter for preprocedural cardiovascular examination (principal); I10 Essential (primary) hypertension
CPT/HCPCS: 78452; 93017; 93306; A9502; J2785

== ENCOUNTER → 2018-05-27 | Outpatient (CLI) | payer MEDICARE, MEDICAID ==
[~2018-05-27] MED LIST changes: -AMLO5TAB2 PO; +AMLO5TAB7 PO; +CLON0.1T PO; +EXEN2VIA SC; +GABA-827 PO; -LABE100T3 PO; +LABE100T6 PO; +LEVO300T4 PO; +OMEP20TA62 PO; +OXYC10TA6 PO; -REGADENOSON 0.4 MG/5 ML SYRINGE ONE
[2018-05-27 12:50] LABS: BASOPHILS # (AUTO) 0.05 x10^3/uL (0-0.1); BASOPHILS % (AUTO) 0 % (0-1); EOSINOPHILS # (AUTO) 0.37 x10^3/uL (0-0.4); EOSINOPHILS % (AUTO) 4 % (1-7); LYMPHOCYTES # (AUTO) 3.06 x10^3/uL (1-3.4); LYMPHOCYTES % (AUTO) 29 % (22-44); MD NO; MEAN CORPUSCULAR HEMOGLOBIN 30.7 pg (27.0-34.8); MEAN CORPUSCULAR HGB CONC 33.9 g/dL (32.4-35.8); MEAN CORPUSCULAR VOLUME 90.5 fL (80-100); MEAN PLATELET VOLUME 8.3 fL (7.4-10.4); MONOCYTES % (AUTO) 6 % (2-9); NEUTROPHILS # (AUTO) 6.68 x10^3/uL (1.8-6.8); NEUTROPHILS % (AUTO) 62 % (42-75); PLATELET COUNT 242 x10^3/uL (130-400); RED BLOOD COUNT 4.77 x10^6/uL (3.82-5.3); RED CELL DISTRIBUTION WIDTH 14.3 % (9.6-15.2)
[2018-05-27 13:02] LABS: ALBUMIN 3.6 g/dL (3.4-5.0); ANION GAP 7 mmol/L (5-15); CALCIUM 9.2 mg/dL (8.5-10.1); CHLORIDE 110 mmol/L (98-107); CREATININE 0.83 mg/dL (0.55-1.02)
[2018-05-27 13:16] LABS: % IRON SATURATION 10 % (20-55); ALANINE AMINOTRANSFERASE 23 U/L (12-78); ALKALINE PHOSPHATASE 53 U/L (45-117); BILIRUBIN,TOTAL 0.2 mg/dL (0.2-1.0); CHOLESTEROL, TOTAL 191 mg/dL (140-239); HDL CHOL % 17 % (28-40); HDL CHOLESTEROL (DIRECT) 32 mg/dL (40-60); IRON LEVEL 39 mcg/dL (50-170); LDL CHOLESTEROL,CALCULATED 116 mg/dL (54-169); LDL/HDL RATIO 3.6 (0.5-3.0); PREALBUMIN 22.7 mg/dL (20.0-40.0); TOTAL IRON BINDING CAPACITY 392 mcg/dL (250-450); TOTAL PROTEIN 8.5 g/dL (6.4-8.2); TRANSFERRIN 310 mg/dL (200-360); TRIGLYCERIDES 213 mg/dL (50-200); VLDL CHOLESTEROL 43 mg/dL (0-25)
[2018-05-27 13:23] LABS: FOLATE LEVEL > 20.0 ng/mL (3.1-17.5)
== END | disposition home or self-care (01) ==
LOC: STAR 11:35
PROVIDERS: ATTEND Surgery
DX: Z01.811 Encounter for preprocedural respiratory examination (principal); R05 Cough; E11.9 Type 2 diabetes mellitus without complications
CPT/HCPCS: 36415; 71046; 80053; 80061; 82306; 82728; 82746; 83540; 83550; 83970; 84134; 84425; 84466; 85025; 93005

== ENCOUNTER 2018-06-02 10:46 | Inpatient (IN) | payer MEDICARE, MEDICAID ==
[~2018-06-02] VITALS: Ht 172.7 cm; Wt 110.8 kg
[2018-06-02] MEDS ORDERED: LACTATED RINGERS 1,000 ML IV SCH (11:13)
[2018-06-02] MEDS ORDERED: HYDR-3653 PO (11:21)
[2018-06-02 11:30] LABS: HCG UR SG 1.021 (1.003-1.030)
[2018-06-02] MEDS ORDERED: LIDOCAINE-MPF 1%, 2ML INFIL ONE (11:30)
[2018-06-02] MEDS ORDERED: ACETAMINOPHEN 1,000 MG/100 ML IV IVPB ONE (11:30)
[2018-06-02] MEDS ORDERED: MIDAZOLAM 1 MG/ML, 2ML ONE (12:50)
[2018-06-02] MEDS ORDERED: FENTANYL PF 250 MCG/5ML ONE (12:50)
[2018-06-02] MEDS ORDERED: PROMETHAZINE 25 MG/ML, 1ML IV PRN (13:00)
[2018-06-02] MEDS ORDERED: FENTANYL PF 100 MCG/2ML IV PRN (13:00)
[2018-06-02] MEDS ORDERED: BUPIVACAINE/PF-EPI 0.5% 1:200K ONE (13:22)
[2018-06-02] MEDS ORDERED: CEFOTETAN PMX 1GM/50ML 50 ML ONE ×2 (14:31)
[2018-06-02] MEDS ORDERED: PROPOFOL 10 MG/ML, 20ML ONE ×2 (14:31)
[2018-06-02] MEDS ORDERED: NEOSTIGMINE 1 MG/ML, 10ML ONE (14:32)
[2018-06-02] MEDS ORDERED: GLYCOPYRROLATE 0.2MG/1ML, 5ML ONE (14:32)
[2018-06-02] MEDS ORDERED: ROCURONIUM 10MG/ML,5ML ONE ×2 (14:32)
[2018-06-02] MEDS ORDERED: SUCCINYLCHOLINE 20 MG/ML, 10ML ONE (14:32)
[2018-06-02] MEDS ORDERED: ONDANSETRON 2MG/ML, 2ML ONE ×2 (14:32→15:55)
[2018-06-02] MEDS ORDERED: LABETALOL 5MG/ML, 20ML ONE ×2 (14:48→16:23)
[2018-06-02] MEDS ORDERED: MEPERIDINE/PF 50 MG/ML ONE ×4 (15:27→16:34)
[2018-06-02] MEDS ORDERED: FENTANYL PF 100 MCG/2ML ONE (15:48)
[2018-06-02] MEDS ORDERED: HYDROmorphone 2 MG/ML, 1ML ONE (15:55)
[2018-06-02] MEDS: ONDANSETRON 2MG/ML, 2ML IV PRN ×3 (15:55→23:16)
[2018-06-02] MEDS: HYDROmorphone 1 MG/ML, 1ML IV PRN ×4 (16:00→16:20)
[2018-06-02] MEDS: MEPERIDINE/PF 25MG/0.5ML IVPush PRN ×3 (16:30→16:50)
[2018-06-02 18:15] VITALS: BP 151/88
[2018-06-02] MEDS ORDERED: PROMETHAZINE 25 MG SUPP PR PRN (19:00)
[2018-06-02] MEDS ORDERED: LACTATED RINGERS 500 ML IVBOLUS PRN (19:00)
[2018-06-02] MEDS ORDERED: HYDROcodone/APAP 7.5-325MG/15ML UDC PO PRN (19:00)
[2018-06-02] MEDS ORDERED: ENALAPRILAT 1.25 MG/ML, 2ML IV PRN (19:00)
[2018-06-02] MEDS ORDERED: DIPHENHYDRAMINE 50 MG/ML, 1ML IV PRN (19:00)
[2018-06-02] MEDS ORDERED: DIPHENHYDRAMINE 25 MG CAPSULE PO PRN (19:00)
[2018-06-02] MEDS ORDERED: PHENOL THROAT SPRAY BOTTLE MM PRN (19:00)
[2018-06-02] MEDS: KETOROLAC 30 MG/1 ML IV SCH (19:03)
[2018-06-02 19:38] VITALS: BP 160/88
[2018-06-02] MEDS ORDERED: [UNRECOGNIZED DRUG - OTHER] XX PRN (20:00)
[2018-06-02] MEDS: ENOXAPARIN 30 MG/0.3 ML SQ SCH (20:14)
[2018-06-02] MEDS: INSULIN LISPRO 100 UNITS/ML, PEN SQ-INSULIN SCH (20:40)
[2018-06-02] MEDS: ACETAMINOPHEN 100 ML IV SCH (20:45)
[2018-06-02] MEDS: POTASSIUM CHLORIDE 20 MEQ in LACTATED RINGERS 1,000 ML IV SCH (21:22)
[2018-06-02] MEDS: LABETALOL 5MG/ML, 20ML IVPush SCH (21:22)
[2018-06-03 00:08] VITALS: BP 157/95
[2018-06-03] MEDS: KETOROLAC 30 MG/1 ML IV SCH ×4 (01:44→19:42)
[2018-06-03] MEDS: ACETAMINOPHEN 100 ML IV SCH (02:52)
[2018-06-03 03:57] VITALS: BP 163/103
[2018-06-03] MEDS: LABETALOL 5MG/ML, 20ML IVPush SCH ×3 (05:13→21:49)
[2018-06-03] MEDS: POTASSIUM CHLORIDE 20 MEQ in LACTATED RINGERS 1,000 ML IV SCH ×2 (06:05→14:04)
[2018-06-03] MEDS: ONDANSETRON 2MG/ML, 2ML IV PRN ×4 (06:05→19:42)
[2018-06-03 06:12] LABS: BASOPHILS # (AUTO) 0.04 x10^3/uL (0-0.1); BASOPHILS % (AUTO) 0 % (0-1); EOSINOPHILS # (AUTO) 0.08 x10^3/uL (0-0.4); EOSINOPHILS % (AUTO) 1 % (1-7); LYMPHOCYTES # (AUTO) 2.37 x10^3/uL (1-3.4); LYMPHOCYTES % (AUTO) 19 % (22-44); MD NO; MEAN CORPUSCULAR HGB CONC 34.2 g/dL (32.4-35.8); MEAN CORPUSCULAR VOLUME 90.4 fL (80-100); MEAN PLATELET VOLUME 9.1 fL (7.4-10.4); MONOCYTES # (AUTO) 0.71 x10^3/uL (0.2-0.8); MONOCYTES % (AUTO) 6 % (2-9); NEUTROPHILS % (AUTO) 75 % (42-75); PLATELET COUNT 238 x10^3/uL (130-400); RED BLOOD COUNT 4.32 x10^6/uL (3.82-5.3); RED CELL DISTRIBUTION WIDTH 13.6 % (9.6-15.2)
[2018-06-03] MEDS: INSULIN LISPRO 100 UNITS/ML, PEN SQ-INSULIN SCH ×4 (06:21→21:57)
[2018-06-03 06:23] LABS: CREATININE 0.83 mg/dL (0.55-1.02)
[2018-06-03 07:42] VITALS: BP 168/105
[2018-06-03] MEDS: ENOXAPARIN 30 MG/0.3 ML SQ SCH ×2 (08:13→19:42)
[2018-06-03 09:23] VITALS: BP 147/94
[2018-06-03] MEDS: SIMETHICONE 80 MG CHEW TAB PO PRN ×2 (13:02→19:41)
[2018-06-03] MEDS: HYDROcodone/APAP 7.5-325MG/15ML UDC PO PRN ×3 (14:05→21:49)
[2018-06-03 16:52] VITALS: BP 166/106
[2018-06-03] MEDS ORDERED: ENALAPRILAT 1.25 MG/ML, 2ML IV PRN (19:00)
[2018-06-03 21:26] VITALS: BP 162/93
[2018-06-04 01:35] VITALS: BP 155/97
[2018-06-04] MEDS: SIMETHICONE 80 MG CHEW TAB PO PRN ×2 (01:45→08:47)
[2018-06-04] MEDS: HYDROcodone/APAP 7.5-325MG/15ML UDC PO PRN ×3 (01:46→10:10)
[2018-06-04] MEDS: KETOROLAC 30 MG/1 ML IV SCH ×2 (01:46→08:48)
[2018-06-04] MEDS: ONDANSETRON 2MG/ML, 2ML IV PRN ×2 (01:46→08:48)
[2018-06-04] MEDS: POTASSIUM CHLORIDE 20 MEQ in LACTATED RINGERS 1,000 ML IV SCH (02:24)
[2018-06-04] MEDS: LABETALOL 5MG/ML, 20ML IVPush SCH (05:54)
[2018-06-04] MEDS: INSULIN LISPRO 100 UNITS/ML, PEN SQ-INSULIN SCH (06:00)
[2018-06-04 07:55] VITALS: BP 158/102
[2018-06-04] MEDS: ENOXAPARIN 30 MG/0.3 ML SQ SCH (08:00)
[2018-06-04 09:46] VITALS: BP 152/96
== END 2018-06-04 10:52 | disposition home or self-care (01) | DRG 621 ==
LOC: ORIP 10:46 → 4NOR 18:02 → DCLOUNGE 06-04 10:21
PROVIDERS: ADMIT Surgery; ATTEND Surgery
PROC: 0DB64Z3 Excision of Stomach, Percutaneous Endoscopic Approach, Vertical (ICD-10-PCS; 2018-06-02)
PROC: 0BQT4ZZ Repair Diaphragm, Percutaneous Endoscopic Approach (ICD-10-PCS; principal; 2018-06-02 13:00)
DX: E66.01 Morbid (severe) obesity due to excess calories (principal); Z68.37 Body mass index [BMI] 37.0-37.9, adult; I10 Essential (primary) hypertension; G89.4 Chronic pain syndrome; E78.5 Hyperlipidemia, unspecified; E78.00 Pure hypercholesterolemia, unspecified; E11.40 Type 2 diabetes mellitus with diabetic neuropathy, unspecified; E03.9 Hypothyroidism, unspecified; R53.83 Other fatigue; M54.9 Dorsalgia, unspecified; K44.9 Diaphragmatic hernia without obstruction or gangrene; M19.90 Unspecified osteoarthritis, unspecified site; Z88.1 Allergy status to other antibiotic agents; Z82.61 Family history of arthritis; Z82.49 Family history of ischemic heart disease and other diseases of the circulatory system; Z82.3 Family history of stroke; Z83.3 Family history of diabetes mellitus; Z84.89 Family history of other specified conditions; Z88.8 Allergy status to other drugs, medicaments and biological substances
CPT/HCPCS: 36415; 81025; 82565; 82962; 85025; 88307; G0378; J0131; J1170; J1650; J1885; J2175; J2250; J2270; J2405; J2704; J2710; J3010; J3480; J3490; J0330; J7120; S0074

== ENCOUNTER 2019-02-12 11:32 | Inpatient (IN) | payer MEDICARE, MEDICAID ==
[~2019-02-12] VITALS: Ht 172.7 cm; Wt 89.4 kg
[~2019-02-12 11:32] MED LIST changes: +AMLO-150 PO; -AMLO5TAB7 PO; -CLON0.1T PO; +CLON0.1T22 PO; +HYDR-3653 PO
[2019-02-12] MEDS ORDERED: OXYcodone/APAP 5/325MG TABLET PO ONE (12:00)
[2019-02-12] MEDS ORDERED: OXYcodone/APAP 5/325MG TABLET ONE (12:13)
[2019-02-12] MEDS ORDERED: GABA300C10 PO (12:23)
[2019-02-12] MEDS ORDERED: SODIUM CHLORIDE FLUSH 10ML SYR IVF ONE (13:30)
[2019-02-12 13:42] LABS: BASOPHILS # (AUTO) 0.07 x10^3/uL (0-0.1); BASOPHILS % (AUTO) 1 % (0-1); EOSINOPHILS # (AUTO) 0.31 x10^3/uL (0-0.4); EOSINOPHILS % (AUTO) 4 % (1-7); LYMPHOCYTES % (AUTO) 52 % (22-44); MD NO; MEAN CORPUSCULAR HEMOGLOBIN 31.3 pg (27.0-34.8); MEAN CORPUSCULAR HGB CONC 33.4 g/dL (32.4-35.8); MEAN CORPUSCULAR VOLUME 93.8 fL (80-100); MEAN PLATELET VOLUME 7.9 fL (7.4-10.4); MONOCYTES # (AUTO) 0.51 x10^3/uL (0.2-0.8); MONOCYTES % (AUTO) 7 % (2-9); NEUTROPHILS # (AUTO) 2.78 x10^3/uL (1.8-6.8); NEUTROPHILS % (AUTO) 36 % (42-75); PLATELET COUNT 243 x10^3/uL (130-400); RED BLOOD COUNT 4.14 x10^6/uL (3.82-5.3); RED CELL DISTRIBUTION WIDTH 14.1 % (9.6-15.2)
[2019-02-12 13:50] LABS: ALBUMIN 3.5 g/dL (3.4-5.0); ANION GAP 5 mmol/L (5-15); CALCIUM 9.4 mg/dL (8.5-10.1); CHLORIDE 109 mmol/L (98-107); CREATININE 0.67 mg/dL (0.55-1.02)
--- NOTE | 2019-02-12 14:14 | NUR ---
PT IN MRI
[2019-02-12] MEDS ORDERED: MORPHINE SULFATE 4 MG/ML, 1ML IVPush PRN (14:30)
[2019-02-12] MEDS ORDERED: ONDANSETRON 2MG/ML, 2ML IVPush ONE (14:30)
[2019-02-12] MEDS ORDERED: ONDANSETRON 2MG/ML, 2ML ONE (15:17)
[2019-02-12] MEDS ORDERED: MORPHINE SULFATE 4 MG/ML, 1ML ONE (15:17)
--- NOTE | 2019-02-12 15:27 | NUR ---
MORPHINE & ZOFRAN GIVEN PER EMAR.
--- NOTE | 2019-02-12 15:53 | NUR ---
PT MOVED TO ROOM 15 PER [facility].
--- NOTE | 2019-02-12 15:55 | NUR ---
RECIEVED REPORT FROM PAIGE SUTHERLAND. PT RESTING ON JONATAN. CHRISS.
[2019-02-12] MEDS ORDERED: VANCOMYCIN PER PHARMACY MC PRN (16:00)
[2019-02-12] MEDS ORDERED: VANCOMYCIN 1,700 MG in SODIUM CHLORIDE 0.9% 250 ML IV ONE (16:00)
[2019-02-12] MEDS ORDERED: SODIUM CHLORIDE FLUSH 10ML SYR IVF PRN (16:00)
[2019-02-12] MEDS ORDERED: ONDANSETRON ODT 4 MG PO PRN (17:00)
[2019-02-12] MEDS ORDERED: DOCUSATE 100 MG CAPSULE PO PRN (17:00)
[2019-02-12] MEDS ORDERED: BISACODYL 10 MG SUPP PR PRN (17:00)
[2019-02-12] MEDS ORDERED: CEFEPIME 2 GM in DEXTROSE 5% 100 ML IV SCH (17:00)
[2019-02-12] MEDS ORDERED: ONDANSETRON 2MG/ML, 2ML IVPush PRN (17:00)
[2019-02-12] MEDS ORDERED: hydrALAzine 20 MG/ML, 1ML IVPush PRN (17:00)
[2019-02-12] MEDS: HEPARIN 5,000 UNITS/ML, 1ML SQ SCH (17:00)
--- NOTE | 2019-02-12 17:02 | NUR ---
REPORT GIVEN TO MIKE CORRALES RN. ALL QUESTIONS ANSWERED. AWAITING PT TRANSPORT.
--- NOTE | 2019-02-12 17:08 | NUR ---
PER ERP DR. SALINAS NO NEED FOR SPLINT FOR PT.
[2019-02-12 17:15] LABS: HCT (SEDRATE) 38.8 % (34.6-47.8)
[2019-02-12 17:34] LABS: FREE T4 (FREE THYROXINE) 1.34 ng/dL (0.76-1.46); THYROID STIMULATING HORMONE 0.097 mIU/L (0.358-3.740)
[2019-02-12] MEDS: OXYcodone IR 5MG TABLET PO SCH ×2 (17:54→23:42)
[2019-02-12] MEDS: LACTATED RINGERS 1,000 ML IV SCH (17:54)
[2019-02-12 18:19] LABS: HEMOGLOBIN A1C 6.3 % (4.2-6.3)
[2019-02-12 19:00] VITALS: BP 117/80
[2019-02-12 19:20] VITALS: BP 112/76
[2019-02-12] MEDS ORDERED: DIPHENHYDRAMINE 50 MG/ML, 1ML IVPush ONE (20:00)
[2019-02-12] MEDS: INSULIN LISPRO 100 UNITS/ML, PEN SQ-INSULIN SCH (21:00)
[2019-02-12] MEDS: MEROPENEM 1 GM in SODIUM CHLORIDE 0.9% 100 ML IV SCH (21:15)
[2019-02-12] MEDS: FAMOTIDINE 20 MG TABLET PO SCH (21:15)
[2019-02-12] MEDS: GABAPENTIN 300 MG CAPSULE PO SCH (21:16)
[2019-02-12] MEDS: ACETAMINOPHEN 325 MG TABLET PO PRN (21:16)
[2019-02-12] MEDS: LINEZOLID PMX 600MG/300ML 300 ML IV SCH (22:13)
[2019-02-12 23:40] VITALS: BP 100/67
[2019-02-13] MEDS: HEPARIN 5,000 UNITS/ML, 1ML SQ SCH ×3 (01:00→15:26)
[2019-02-13 01:04] VITALS: BP 115/72
[2019-02-13] MEDS: MEROPENEM 1 GM in SODIUM CHLORIDE 0.9% 100 ML IV SCH ×3 (04:51→21:03)
[2019-02-13 05:11] LABS: BASOPHILS # (AUTO) 0.04 x10^3/uL (0-0.1); BASOPHILS % (AUTO) 1 % (0-1); EOSINOPHILS # (AUTO) 0.16 x10^3/uL (0-0.4); EOSINOPHILS % (AUTO) 3 % (1-7); LYMPHOCYTES % (AUTO) 11 % (22-44); MD NO; MEAN CORPUSCULAR HEMOGLOBIN 30.3 pg (27.0-34.8); MEAN CORPUSCULAR HGB CONC 33.2 g/dL (32.4-35.8); MEAN CORPUSCULAR VOLUME 91.4 fL (80-100); MEAN PLATELET VOLUME 7.9 fL (7.4-10.4); MONOCYTES # (AUTO) 0.21 x10^3/uL (0.2-0.8); MONOCYTES % (AUTO) 3 % (2-9); NEUTROPHILS # (AUTO) 5.08 x10^3/uL (1.8-6.8); NEUTROPHILS % (AUTO) 82 % (42-75); PLATELET COUNT 216 x10^3/uL (130-400); RED BLOOD COUNT 4.11 x10^6/uL (3.82-5.3)
[2019-02-13 05:20] LABS: ANION GAP 4 mmol/L (5-15); CALCIUM 8.8 mg/dL (8.5-10.1); CHLORIDE 108 mmol/L (98-107); CREATININE 0.75 mg/dL (0.55-1.02)
[2019-02-13 05:50] VITALS: BP 106/69
[2019-02-13] MEDS: OXYcodone IR 5MG TABLET PO SCH ×4 (05:58→23:31)
[2019-02-13] MEDS: INSULIN LISPRO 100 UNITS/ML, PEN SQ-INSULIN SCH ×2 (07:00→11:00)
[2019-02-13 07:27] VITALS: BP 108/71
[2019-02-13] MEDS: LEVOTHYROXINE 150 MCG TABLET PO SCH (07:28)
[2019-02-13] MEDS: FAMOTIDINE 20 MG TABLET PO SCH ×2 (07:28→21:02)
[2019-02-13] MEDS: GABAPENTIN 300 MG CAPSULE PO SCH ×3 (07:28→21:02)
[2019-02-13] MEDS ORDERED: DIPHENHYDRAMINE 50 MG/ML, 1ML IVPush ONE (07:30)
[2019-02-13] MEDS: LINEZOLID PMX 600MG/300ML 300 ML IV SCH ×2 (10:46→22:57)
[2019-02-13] MEDS: LACTATED RINGERS 1,000 ML IV SCH (11:29)
[2019-02-13 12:58] VITALS: BP 117/79
[2019-02-13] MEDS ORDERED: DIPHENHYDRAMINE 50 MG CAPSULE ONE (18:09)
[2019-02-13] MEDS ORDERED: DIPHENHYDRAMINE 25 MG CAPSULE PO ONE (18:30)
[2019-02-13 20:25] VITALS: BP 99/65
[2019-02-13 20:58] VITALS: BP 110/73
[2019-02-13] MEDS ORDERED: DEXAMETHASONE 4 MG TABLET PO ONE (22:00)
[2019-02-14 00:07] VITALS: BP 118/75
[2019-02-14] MEDS: ZOLPIDEM 5MG TABLET PO PRN ×2 (00:15→23:39)
[2019-02-14] MEDS: HEPARIN 5,000 UNITS/ML, 1ML SQ SCH ×3 (01:00→17:00)
[2019-02-14 05:15] LABS: BASOPHILS # (AUTO) 0.01 x10^3/uL (0-0.1); BASOPHILS % (AUTO) 0 % (0-1); EOSINOPHILS # (AUTO) 0.02 x10^3/uL (0-0.4); EOSINOPHILS % (AUTO) 1 % (1-7); LYMPHOCYTES # (AUTO) 0.74 x10^3/uL (1-3.4); LYMPHOCYTES % (AUTO) 20 % (22-44); MD NO; MEAN CORPUSCULAR HEMOGLOBIN 31.3 pg (27.0-34.8); MEAN CORPUSCULAR HGB CONC 33.8 g/dL (32.4-35.8); MEAN CORPUSCULAR VOLUME 92.7 fL (80-100); MEAN PLATELET VOLUME 7.9 fL (7.4-10.4); MONOCYTES # (AUTO) 0.11 x10^3/uL (0.2-0.8); MONOCYTES % (AUTO) 3 % (2-9); NEUTROPHILS # (AUTO) 2.85 x10^3/uL (1.8-6.8); NEUTROPHILS % (AUTO) 76 % (42-75); PLATELET COUNT 211 x10^3/uL (130-400); RED BLOOD COUNT 4.24 x10^6/uL (3.82-5.3); RED CELL DISTRIBUTION WIDTH 13.9 % (9.6-15.2)
[2019-02-14 05:23] LABS: ANION GAP 3 mmol/L (5-15); CALCIUM 9.4 mg/dL (8.5-10.1); CHLORIDE 109 mmol/L (98-107)
[2019-02-14] MEDS: MEROPENEM 1 GM in SODIUM CHLORIDE 0.9% 100 ML IV SCH ×3 (05:33→22:57)
[2019-02-14] MEDS: OXYcodone IR 5MG TABLET PO SCH ×4 (05:34→23:39)
[2019-02-14 07:56] VITALS: BP 118/77
[2019-02-14] MEDS: GABAPENTIN 300 MG CAPSULE PO SCH ×3 (10:23→21:37)
[2019-02-14] MEDS: FAMOTIDINE 20 MG TABLET PO SCH ×2 (10:23→21:37)
[2019-02-14] MEDS: LEVOTHYROXINE 150 MCG TABLET PO SCH (10:24)
[2019-02-14] MEDS: INSULIN LISPRO 100 UNITS/ML, PEN SQ-INSULIN SCH ×3 (11:00→21:38)
[2019-02-14] MEDS: LINEZOLID PMX 600MG/300ML 300 ML IV SCH ×2 (11:59→23:40)
[2019-02-14] MEDS: ACETAMINOPHEN 325 MG TABLET PO PRN (12:22)
[2019-02-14] MEDS ORDERED: FLUCONAZOLE 100 MG TABLET PO ONE (12:30)
[2019-02-14] MEDS ORDERED: FLUCONAZOLE 50 MG TABLET PO ONE (13:00)
[2019-02-14 13:47] VITALS: BP 125/79
[2019-02-14 16:44] LABS: HCG UR SG 1.016 (1.003-1.030); MICROSCOPIC AUTO
[2019-02-14 17:13] LABS: CULTURE INDICATED? YES
[2019-02-14] MEDS ORDERED: FENTANYL PF 100 MCG/2ML ONE (17:14)
[2019-02-14] MEDS ORDERED: MIDAZOLAM 1 MG/ML, 2ML ONE (17:14)
[2019-02-14] MEDS ORDERED: HYDROCORTISONE 100 MG INJ. ONE (17:17)
[2019-02-14] MEDS ORDERED: EPINEPHRINE 1 MG/ML, 1ML ONE (17:18)
[2019-02-14] MEDS ORDERED: BUPIVACAINE/PF 0.5% ONE (17:18)
[2019-02-14] MEDS ORDERED: BUPIVACAINE/PF 0.25% ONE (17:18)
[2019-02-14] MEDS ORDERED: PROPOFOL 10 MG/ML, 20ML ONE (17:22)
[2019-02-14] MEDS ORDERED: OXYcodone 5 MG/5 ML ORAL.SOL UDC PO PRN (17:30)
[2019-02-14] MEDS ORDERED: PROMETHAZINE 25 MG/ML, 1ML IV PRN (17:30)
[2019-02-14] MEDS ORDERED: HYDROmorphone 2 MG/ML, 1ML IVPush PRN (17:30)
[2019-02-14] MEDS ORDERED: hydrALAzine 20 MG/ML, 1ML IV PRN (17:30)
[2019-02-14] MEDS ORDERED: FENTANYL PF 100 MCG/2ML IV PRN (17:30)
[2019-02-14] MEDS ORDERED: ACETAMINOPHEN 325 MG TABLET PO PRN (17:30)
[2019-02-14] MEDS ORDERED: MIDAZOLAM 1 MG/ML, 2ML IV PRN (17:30)
[2019-02-14] MEDS ORDERED: MEPERIDINE/PF 25MG/0.5ML IVPush PRN (17:30)
[2019-02-14] MEDS ORDERED: ONDANSETRON 2MG/ML, 2ML IV PRN (17:30)
[2019-02-14] MEDS ORDERED: ALBUTEROL/IPRATROPIUM 2.5MG/0.5MG, 3 ML NPPB PRN (17:30)
[2019-02-14] MEDS ORDERED: OXYcodone 5 MG/5 ML ORAL.SOL UDC ONE (17:52)
[2019-02-14 19:18] VITALS: BP 129/79
[2019-02-15 00:40] VITALS: BP 124/79
[2019-02-15] MEDS: HEPARIN 5,000 UNITS/ML, 1ML SQ SCH ×3 (01:00→17:00)
[2019-02-15 05:12] LABS: BASOPHILS # (AUTO) 0.03 x10^3/uL (0-0.1); BASOPHILS % (AUTO) 0 % (0-1); EOSINOPHILS # (AUTO) 0.09 x10^3/uL (0-0.4); EOSINOPHILS % (AUTO) 1 % (1-7); LYMPHOCYTES # (AUTO) 2.57 x10^3/uL (1-3.4); LYMPHOCYTES % (AUTO) 33 % (22-44); MD NO; MEAN CORPUSCULAR HEMOGLOBIN 30.8 pg (27.0-34.8); MEAN CORPUSCULAR HGB CONC 32.8 g/dL (32.4-35.8); MEAN CORPUSCULAR VOLUME 93.9 fL (80-100); MEAN PLATELET VOLUME 8.2 fL (7.4-10.4); MONOCYTES # (AUTO) 0.58 x10^3/uL (0.2-0.8); MONOCYTES % (AUTO) 7 % (2-9); NEUTROPHILS # (AUTO) 4.55 x10^3/uL (1.8-6.8); NEUTROPHILS % (AUTO) 58 % (42-75); PLATELET COUNT 219 x10^3/uL (130-400); RED BLOOD COUNT 3.93 x10^6/uL (3.82-5.3); RED CELL DISTRIBUTION WIDTH 13.4 % (9.6-15.2)
[2019-02-15 05:21] LABS: ANION GAP 5 mmol/L (5-15); CALCIUM 9.1 mg/dL (8.5-10.1); CHLORIDE 110 mmol/L (98-107)
[2019-02-15 05:31] LABS: CREATININE 0.67 mg/dL (0.55-1.02)
[2019-02-15] MEDS: OXYcodone IR 5MG TABLET PO SCH ×4 (05:39→23:24)
[2019-02-15] MEDS: MEROPENEM 1 GM in SODIUM CHLORIDE 0.9% 100 ML IV SCH ×3 (06:38→23:59)
[2019-02-15 06:55] VITALS: BP 125/76
[2019-02-15] MEDS: INSULIN LISPRO 100 UNITS/ML, PEN SQ-INSULIN SCH ×4 (07:00→20:39)
[2019-02-15] MEDS: GABAPENTIN 300 MG CAPSULE PO SCH ×3 (10:30→23:24)
[2019-02-15] MEDS: FAMOTIDINE 20 MG TABLET PO SCH ×2 (10:31→20:37)
[2019-02-15] MEDS: LEVOTHYROXINE 150 MCG TABLET PO SCH (10:31)
[2019-02-15] MEDS: LINEZOLID PMX 600MG/300ML 300 ML IV SCH (12:28)
[2019-02-15 12:33] VITALS: BP 125/83
[2019-02-15 20:30] VITALS: BP 128/83
[2019-02-15] MEDS: DIPHENHYDRAMINE/ZINC CRM 2%, 30GM TP PRN (20:40)
[2019-02-15] MEDS: ZOLPIDEM 5MG TABLET PO PRN (23:24)
[2019-02-16] MEDS: LINEZOLID PMX 600MG/300ML 300 ML IV SCH ×3 (00:38→20:40)
[2019-02-16] MEDS: HEPARIN 5,000 UNITS/ML, 1ML SQ SCH ×4 (01:00→20:40)
[2019-02-16 04:29] VITALS: BP 110/74
[2019-02-16 05:04] LABS: MEAN CORPUSCULAR HEMOGLOBIN 31.4 pg (27.0-34.8); MEAN CORPUSCULAR HGB CONC 33.4 g/dL (32.4-35.8); MEAN PLATELET VOLUME 8.1 fL (7.4-10.4); PLATELET COUNT 200 x10^3/uL (130-400); RED BLOOD COUNT 3.67 x10^6/uL (3.82-5.3); RED CELL DISTRIBUTION WIDTH 13.7 % (9.6-15.2)
[2019-02-16 05:12] LABS: ANION GAP 4 mmol/L (5-15); CALCIUM 8.8 mg/dL (8.5-10.1); CHLORIDE 110 mmol/L (98-107); CREATININE 0.71 mg/dL (0.55-1.02)
[2019-02-16] MEDS: OXYcodone IR 5MG TABLET PO SCH ×4 (05:34→23:00)
[2019-02-16 05:56] LABS: BASOPHILS # (AUTO) 0.03 x10^3/uL (0-0.1); BASOPHILS % (AUTO) 1 % (0-1); EOSINOPHILS # (AUTO) 0.34 x10^3/uL (0-0.4); EOSINOPHILS % (AUTO) 5 % (1-7); LYMPHOCYTES # (AUTO) 3.85 x10^3/uL (1-3.4); LYMPHOCYTES % (AUTO) 56 % (22-44); MD SCAN; MONOCYTES # (AUTO) 0.44 x10^3/uL (0.2-0.8); MONOCYTES % (AUTO) 6 % (2-9); NEUTROPHILS # (AUTO) 2.24 x10^3/uL (1.8-6.8); NEUTROPHILS % (AUTO) 33 % (42-75)
[2019-02-16] MEDS: INSULIN LISPRO 100 UNITS/ML, PEN SQ-INSULIN SCH ×4 (07:00→20:40)
[2019-02-16 07:43] VITALS: BP 136/87
[2019-02-16 08:28] VITALS: BP 112/77
[2019-02-16] MEDS: DIPHENHYDRAMINE/ZINC CRM 2%, 30GM TP PRN ×2 (08:30→20:37)
[2019-02-16] MEDS: GABAPENTIN 300 MG CAPSULE PO SCH ×3 (08:31→20:23)
[2019-02-16] MEDS: LEVOTHYROXINE 150 MCG TABLET PO SCH (08:31)
[2019-02-16] MEDS: MEROPENEM 1 GM in SODIUM CHLORIDE 0.9% 100 ML IV SCH ×3 (08:32→20:40)
[2019-02-16] MEDS: FAMOTIDINE 20 MG TABLET PO SCH ×2 (08:32→20:23)
[2019-02-16 14:08] VITALS: BP 113/78
[2019-02-16 19:19] VITALS: BP 142/82
[2019-02-16] MEDS: ZOLPIDEM 5MG TABLET PO PRN (22:59)
[2019-02-17 02:37] VITALS: BP 125/79
[2019-02-17] MEDS: OXYcodone IR 5MG TABLET PO SCH ×2 (05:12→10:32)
[2019-02-17 05:16] LABS: BASOPHILS # (AUTO) 0.04 x10^3/uL (0-0.1); BASOPHILS % (AUTO) 1 % (0-1); EOSINOPHILS % (AUTO) 5 % (1-7); LYMPHOCYTES # (AUTO) 3.22 x10^3/uL (1-3.4); LYMPHOCYTES % (AUTO) 51 % (22-44); MD NO; MEAN CORPUSCULAR HEMOGLOBIN 30.3 pg (27.0-34.8); MEAN CORPUSCULAR HGB CONC 32.8 g/dL (32.4-35.8); MEAN CORPUSCULAR VOLUME 92.4 fL (80-100); MEAN PLATELET VOLUME 7.8 fL (7.4-10.4); MONOCYTES # (AUTO) 0.39 x10^3/uL (0.2-0.8); MONOCYTES % (AUTO) 6 % (2-9); NEUTROPHILS # (AUTO) 2.41 x10^3/uL (1.8-6.8); NEUTROPHILS % (AUTO) 38 % (42-75); PLATELET COUNT 232 x10^3/uL (130-400); RED BLOOD COUNT 4.17 x10^6/uL (3.82-5.3); RED CELL DISTRIBUTION WIDTH 13.7 % (9.6-15.2)
[2019-02-17 05:23] LABS: ANION GAP 5 mmol/L (5-15); CALCIUM 9.3 mg/dL (8.5-10.1); CHLORIDE 109 mmol/L (98-107)
[2019-02-17 05:24] LABS: CREATININE 0.68 mg/dL (0.55-1.02)
[2019-02-17] MEDS: INSULIN LISPRO 100 UNITS/ML, PEN SQ-INSULIN SCH ×2 (06:51→11:04)
[2019-02-17 07:09] VITALS: BP 124/75
[2019-02-17] MEDS: MEROPENEM 1 GM in SODIUM CHLORIDE 0.9% 100 ML IV SCH (07:57)
[2019-02-17] MEDS: HEPARIN 5,000 UNITS/ML, 1ML SQ SCH (09:43)
[2019-02-17] MEDS: LEVOTHYROXINE 150 MCG TABLET PO SCH (09:47)
[2019-02-17] MEDS: GABAPENTIN 300 MG CAPSULE PO SCH (09:47)
[2019-02-17] MEDS: FAMOTIDINE 20 MG TABLET PO SCH (09:47)
== END 2019-02-17 11:45 | disposition home or self-care (01) | DRG 478 ==
LOC: ED 12:58 → EDIP 15:54 → 3NE 17:11 → DCLOUNGE 02-17 11:35
PROVIDERS: ADMIT Internal Medicine; ATTEND Internal Medicine
PROC: 0QBP0ZX Excision of Left Metatarsal, Open Approach, Diagnostic (ICD-10-PCS; principal; 2019-02-14 17:00)
DX: S92.352A Displaced fracture of fifth metatarsal bone, left foot, initial encounter for closed fracture (principal); N39.0 Urinary tract infection, site not specified; S92.332A Displaced fracture of third metatarsal bone, left foot, initial encounter for closed fracture; S92.342A Displaced fracture of fourth metatarsal bone, left foot, initial encounter for closed fracture; E66.01 Morbid (severe) obesity due to excess calories; Z88.8 Allergy status to other drugs, medicaments and biological substances; Z68.30 Body mass index [BMI] 30.0-30.9, adult; E03.9 Hypothyroidism, unspecified; F12.90 Cannabis use, unspecified, uncomplicated; G89.11 Acute pain due to trauma; I10 Essential (primary) hypertension; M79.7 Fibromyalgia; Z82.49 Family history of ischemic heart disease and other diseases of the circulatory system; Z83.3 Family history of diabetes mellitus; Z87.891 Personal history of nicotine dependence; E11.9 Type 2 diabetes mellitus without complications; W18.09XA Striking against other object with subsequent fall, initial encounter; Y93.89 Activity, other specified; Y92.038 Other place in apartment as the place of occurrence of the external cause; Y99.8 Other external cause status
CPT/HCPCS: 36415; 80048; 81001; 81025; 82040; 82962; 83036; 84145; 84439; 84443; 85025; 85651; 86140; 87040; 87070; 87075; 87086; 87205; 96365; 96375; G0378; J0171; J2020; J2185; J2250; J2405; J2704; J3010; J3370; J3490; J1200; J1720; J1815; J2270; J7050; J7120; Q0163

== ENCOUNTER 2019-07-01 17:53 | Emergency (ER) | payer MEDICARE, MEDICAID ==
[~2019-07-01] VITALS: Ht 172.7 cm; Wt 78.0 kg
[~2019-07-01 17:53] MED LIST changes: +GABA300C10 PO; -HYDR-3307 PO; +HYDR-36 PO
--- NOTE | 2019-07-01 19:18 | NUR ---
PT HERE BECAUSE SHE BELIEVES SHE HAS BODY LICE ALL OVER HER. PT SAYS "THEY ARE IN MY THROAT AND NOSE." NO LICE SEEN AT THIS TIME. PT ALSO HAS WOUND ON RIGHT FOOT THAT IS HEALING. PT SAYS THERE IS INCREASED REDNESS. VSS. FRIENDS AT BEDSIDE
--- NOTE | 2019-07-01 19:42 | NUR ---
WHILE RN WAS IN ROOM. PT IS GAGGING AND SPITTING IN VOMIT BAG REPEATEDLY. WHEN RN LEAVES ROOM PT ABLE TO HOLD CONVERSATION WITH FRIENDS AND WILL OCCASIONALLY SPIT IN BAG.
[2019-07-01 20:07] VITALS: BP 167/99
--- NOTE | 2019-07-01 20:20 | NUR ---
PA AT BEDSIDE
--- NOTE | 2019-07-01 20:33 | NUR ---
LAB AT BEDSIDE. PT GIVEN WATER FOR UA SAMPLE.
[2019-07-01] MEDS ORDERED: OLANZAPINE 10 MG TABLET ONE (20:51)
[2019-07-01 20:56] LABS: BASOPHILS # (AUTO) 0.04 x10^3/uL (0-0.1); BASOPHILS % (AUTO) 1 % (0-1); EOSINOPHILS # (AUTO) 0.22 x10^3/uL (0-0.4); EOSINOPHILS % (AUTO) 4 % (1-7); LYMPHOCYTES # (AUTO) 2.75 x10^3/uL (1-3.4); LYMPHOCYTES % (AUTO) 44 % (22-44); MD NO; MEAN CORPUSCULAR HGB CONC 33.5 g/dL (32.4-35.8); MEAN CORPUSCULAR VOLUME 92.7 fL (80-100); MEAN PLATELET VOLUME 8.1 fL (7.4-10.4); MONOCYTES # (AUTO) 0.39 x10^3/uL (0.2-0.8); MONOCYTES % (AUTO) 6 % (2-9); NEUTROPHILS % (AUTO) 45 % (42-75); PLATELET COUNT 222 x10^3/uL (130-400); RED BLOOD COUNT 3.72 x10^6/uL (3.82-5.3); RED CELL DISTRIBUTION WIDTH 13.1 % (9.6-15.2)
[2019-07-01 20:59] LABS: ALANINE AMINOTRANSFERASE 25 U/L (12-78); ALBUMIN 3.2 g/dL (3.4-5.0); ANION GAP 8 mmol/L (5-15); CALCIUM 9.5 mg/dL (8.5-10.1); CHLORIDE 110 mmol/L (98-107); SALICYLATE LEVEL 4.1 mg/dL (2.8-20.0)
[2019-07-01 21:02] LABS: ALKALINE PHOSPHATASE 107 U/L (45-117); BILIRUBIN,TOTAL 0.5 mg/dL (0.2-1.0); CREATININE 0.91 mg/dL (0.55-1.02); TOTAL PROTEIN 8.2 g/dL (6.4-8.2)
--- NOTE | 2019-07-01 21:30 | NUR ---
PT ABLE TO AMBULATE STEADILY TO THE BATHROOM TO PROVIDE URINE SAMPLE. URINE WALKED TO LAB. PT MEDICATED PER EMAR. TENDER LABOR AT BEDSIDE.
[2019-07-01 21:32] LABS: AMPHETAMINE SCREEN, URINE Positive (Negative); BARBITURATE SCREEN, URINE Negative (Negative); BENZODIAZEPINE SCREEN, URINE Negative (Negative); CANNABINOID SCREEN, URINE Negative (Negative); COCAINE SCREEN, URINE Negative (Negative); METHADONE SCREEN, URINE Negative (Negative); OPIATE SCREEN, URINE Positive (Negative)
[2019-07-02] MEDS ORDERED: OLANZAPINE 10 MG TABLET PO SCH (09:00)
== END 2019-07-01 22:02 | disposition home or self-care (01) ==
LOC: ED 21:55
DX: F15.159 Other stimulant abuse with stimulant-induced psychotic disorder, unspecified (principal); F11.159 Opioid abuse with opioid-induced psychotic disorder, unspecified; F17.210 Nicotine dependence, cigarettes, uncomplicated; Z90.49 Acquired absence of other specified parts of digestive tract; Z72.9 Problem related to lifestyle, unspecified; Z75.9 Unspecified problem related to medical facilities and other health care; Z91.14 Patient's other noncompliance with medication regimen
CPT/HCPCS: 36415; 80053; 80307; 85025; 99283